=== PATIENT | female | born 1955 | race Caucasian/White ===

== ENCOUNTER → 2020-04-23 | Outpatient (CLI) | payer MEDICARE, OTHER, SELFPAY ==
--- NOTE | 2020-04-23 11:00 | DI.CT.S_ITS ---
PROCEDURE: CT CHEST ABD PEL W CON INDICATIONS: Follow-up node positive colon cancer and melanoma TECHNIQUE: After the administration of oral and intravenous contrast, 5 mm thick sections acquired from the lung apices to the symphysis. 5 mm coronal and sagittal reformats were performed, with additional 7 mm coronal MIP reformats through the lungs. For radiation dose reduction, the following was used: automated exposure control, adjustment of mA and/or kV according to patient size. COMPARISON: Outside Facility, RG, CT PET SKULL BASE TO MID THIGH, 05/16/2019, 11:44. FINDINGS: Image quality: Excellent. CHEST: Lungs and pleura: No acute airspace opacities. No pleural effusions or pneumothorax. Central and peripheral airways appear patent and normal in caliber. Mediastinum: Heart size is normal. No pericardial effusion. No mediastinal or hilar adenopathy by size criteria. Thoracic aorta and central pulmonary arteries are normal in size. Esophagus is normal in caliber. No hiatal hernia. Chest wall: No axillary or supraclavicular adenopathy by size criteria. Thyroid gland is not well seen. ABDOMEN: Solid organs: Liver is normal in size and enhancement. Gallbladder appears normal . Biliary system is non dilated. Pancreas enhances normally. Spleen is normal in size and enhancement. No adrenal nodules. Kidneys demonstrate normal size and enhancement, without hydronephrosis. Peritoneum and bowel: Bowel loops demonstrate normal wall thickness and caliber. No free fluid or air. Nodes and vessels: No retroperitoneal or mesenteric adenopathy by size criteria. Aorta and inferior vena cava are normal in size. Miscellaneous: No ventral hernias. PELVIS: Genitourinary: Bladder wall thickness is normal. Miscellaneous: No inguinal hernias or adenopathy. Bones: No suspicious bony lesions. No vertebral body compression fractures. Enteric staple line is seen at the left lower quadrant posteriorly, likely representing site of prior partial colectomy and reanastomosis. There is no sign of mass lesion in this area or adjacent adenopathy. IMPRESSION: No sign of metastatic disease, apparent reanastomosis site at the posterior sigmoid area of the pelvis. Note is made of a 7 mm hypodensity within the right posterior hepatic segment inferiorly which likely is a cyst or hemangioma but is too small to accurately characterize and therefore follow-up by attention during subsequent survey scanning by CT is recommended. This area was included on prior PET-CT scanning the latest of which is 05/16/19, and no contrast enhanced CT scans are available to compare in this area. Dictated by: Otto Aleman M.D. on 05/04/2020 at 14:42 Approved by: Otto Aleman M.D. on 05/04/2020 at 14:44
== END ==
LOC: CT 09:25
PROVIDERS: PCP Nurse Practitioner Family; Referring Provider Internal Medicine; Visit Provider Internal Medicine
DX: Z08 Encounter for follow-up examination after completed treatment for malignant neoplasm (principal); Z85.820 Personal history of malignant melanoma of skin; Z85.038 Personal history of other malignant neoplasm of large intestine
CPT/HCPCS: 71260; 74177; Q9967

== ENCOUNTER → 2020-04-28 10:33 | Outpatient (CLI) | payer MEDICARE, OTHER, SELFPAY ==
--- NOTE | 2020-04-28 10:34 | DI.MG.S_ITS ---
BILATERAL DIGITAL SCREENING MAMMOGRAM 3D/2D WITH CAD: 04/28/2020 CLINICAL: Baseline by default. Routine screening. No prior exams were available for comparison. The tissue of both breasts is predominantly fatty. Current study was also evaluated with a Computer Aided Detection (CAD) system. There is a possible focal asymmetry in the left breast at 12 o'clock middle depth. No other significant masses, calcifications, or other findings are seen in either breast. IMPRESSION: INCOMPLETE: NEEDS ADDITIONAL IMAGING EVALUATION The possible focal asymmetry in the left breast is indeterminate. Additional views with possible ultrasound are recommended. This exam was interpreted at Station ID: [id number]. NOTE: For mammograms, a report in lay terms will be sent to the patient. Approximately 15% of breast malignancies will not be visualized mammographically. In the management of a palpable breast mass, a negative mammogram must not discourage biopsy of a clinically suspicious lesion. Electronically Signed By: Marcellus hughes/marck:04/30/2020 08:52:03 letter sent: Additional Imaging Needed ACR BI-RADS Category 0: Incomplete [id number]
== END ==
PROVIDERS: PCP Nurse Practitioner Family; Referring Provider Nurse Practitioner Family; Visit Provider Internal Medicine
DX: Z12.31 Encounter for screening mammogram for malignant neoplasm of breast (principal)
CPT/HCPCS: 77063; 77067

== ENCOUNTER → 2020-05-18 09:25 | Outpatient (CLI) | payer MEDICARE, OTHER, SELFPAY ==
--- NOTE | 2020-05-18 | DI.MG.S_ITS ---
UNILATERAL LEFT DIGITAL DIAGNOSTIC MAMMOGRAM 3D/2D WITH ADDITIONAL VIEWS: 05/18/2020 CLINICAL: Additional evaluation requested from prior study. Comparison is made to exam dated: 04/28/2020 mammogram - [facility]. The tissue of left breast is predominantly fatty. There is a possible new irregular focal asymmetry with a circumscribed margin in the left breast at 12 o'clock middle depth. This is seen in additional views. No other significant masses or calcifications are seen in the breast. IMPRESSION: INCOMPLETE: NEEDS ADDITIONAL IMAGING EVALUATION The possible new irregular focal asymmetry in the left breast is indeterminate. An ultrasound is recommended. US will be performed and dictated separately. This exam was interpreted at Station ID: [id number]. NOTE: For mammograms, a report in lay terms will be sent to the patient. Approximately 15% of breast malignancies will not be visualized mammographically. In the management of a palpable breast mass, a negative mammogram must not discourage biopsy of a clinically suspicious lesion. Electronically Signed By: Fabio Deleon acr/:05/18/2020 10:23:31 letter sent: Additional Imaging Needed ACR BI-RADS Category 0: Incomplete 3340F
--- NOTE | 2020-05-18 10:50 | DI.US.S_ITS ---
At the request of: NADIA AZEVEDO Procedure: US breast LT limited ULTRASOUND OF LEFT BREAST: 05/18/2020 CLINICAL: Patient returns today to evaluate a focal asymmetry in the left breast. Comparison is made to exams dated: 05/18/2020 mammogram and 04/28/2020 mammogram - [facility]. Color flow and Doppler ultrasound of the left breast were performed. There is a 0.8 cm x 0.9 cm x 0.7 cm round mass with a circumscribed margin in the left breast at 2 o'clock posterior depth 16 cm from the nipple. This round mass is hypoechoic. There also is a 1.3 cm x 0.8 cm x 0.4 cm irregular mass in the left breast at 1 o'clock posterior depth 9 cm from the nipple. This irregular mass is hypoechoic. IMPRESSION: SUSPICIOUS OF MALIGNANCY The 0.8 cm x 0.9 cm x 0.7 cm round mass in the left breast at 2 o'clock posterior depth is suspicious of malignancy. An ultrasound guided biopsy is recommended. The 1.3 cm x 0.8 cm x 0.4 cm irregular mass in the left breast at 1 o'clock posterior depth is suspicious of malignancy. An ultrasound guided biopsy is recommended. This exam was interpreted at Station ID: [id number]. Electronically Signed By: Fabio Deleon acr/:05/18/2020 13:21:37 letter sent: Biopsy Required Ultrasound BI-RADS: 4 Suspicious for malignancy
== END ==
PROVIDERS: PCP Nurse Practitioner Family; Referring Provider Internal Medicine; Visit Provider Internal Medicine
DX: R92.8 Other abnormal and inconclusive findings on diagnostic imaging of breast (principal); N63.21 Unspecified lump in the left breast, upper outer quadrant
CPT/HCPCS: 76642; 77065; G0279

== ENCOUNTER → 2020-06-01 13:04 | Outpatient (CLI) | payer MEDICARE, OTHER, SELFPAY ==
--- NOTE | 2020-06-01 | DI.MG.S_ITS ---
UNILATERAL LEFT DIGITAL DIAGNOSTIC MAMMOGRAM POST-PROCEDURE IMAGING FOR MARKER PLACEMENT: 06/01/2020 CLINICAL: Left post clip. Comparison is made to exams dated: 06/01/2020 ultrasound biopsy, 05/18/2020 ultrasound, and 05/18/2020 mammogram - [facility]. The tissue of left breast is predominantly fatty. Biopsu sitem markers are in expected positions for biopsy 1 and 2, left breast. IMPRESSION: POST PROCEDURE MAMMOGRAM FOR MARKER PLACEMENT Expected marker positions for the two biopsies performed today, loeft breast. This exam was interpreted at Station ID: [id number]. NOTE: For mammograms, a report in lay terms will be sent to the patient. Approximately 15% of breast malignancies will not be visualized mammographically. In the management of a palpable breast mass, a negative mammogram must not discourage biopsy of a clinically suspicious lesion. Electronically Signed By: Otto Aleman M.D. sdh/:06/01/2020 16:29:37 ACR BI-RADS Category Post-procedure mammogram for marker placement
--- NOTE | 2020-06-01 | DI.US.S_ITS ---
MULTIPLE ULTRASOUND GUIDED BIOPSIES LEFT BREAST USING VACUUM DEVICE WITH MARKING DEVICES INSERTED AND POST DIGITAL MAMMOGRAPHIC AND ULTRASOUND IMAGIN06/01/2020 CLINICAL: Left breast masses x 2. PATIENT CONSENT: Risks (minor bleeding, infection, vasovagal reaction and repeat procedure), benefits and alternatives were explained to the patient and written informed consent was obtained. Correlation is made to exams dated: 05/18/2020 ultrasound, 05/18/2020 mammogram, and 04/28/2020 mammogram - [facility]. An ultrasound guided biopsy using real-time ultrasound was performed for the concerning 0.6 cm x 0.7 cm x 0.6 cm round solid mass located in the left breast at 2 o'clock middle depth. This was described on the previous mammography and ultrasound reports. The skin was prepped in the usual manner. Local anesthetic was administered to the access site. A skin jim was made in the breast. The abnormality was approached from the lateral aspect. A 13 gauge biopsy needle was placed adjacent to the abnormality through an introducer device under ultrasound guidance. Once the needle was documented to be in the correct location, four specimens were obtained using the Mammotome biopsy system. The patient received additional local anesthetic during the procedure. A Vision clip was inserted into the biopsy cavity. A skin closure strip and a sterile dressing were applied to the access site. Post procedure digital mammographic and ultrasound imaging demonstratest the location device at the targeted area and partial removal of the abnormality. The specimens were sent to the laboratory for pathological analysis. A second ultrasound guided biopsy using real-time ultrasound was performed for the concerning 0.2 cm x 0.3 cm x 0.3 cm circumscribed lobulated solid mass located in the left breast at 1 o'clock middle depth. This was described on the previous mammography and ultrasound reports. The skin was prepped in the usual manner. Local anesthetic was administered to the access site. A skin jim was made in the breast. The abnormality was approached from the lateral aspect. A 13 gauge biopsy needle was placed adjacent to the abnormality under ultrasound guidance. Once the needle was documented to be in the correct location, four specimens were obtained using the Mammotome biopsy system. The patient received additional local anesthetic during the procedure. A Celero clip was inserted into the biopsy cavity. A skin closure strip and a sterile dressing were applied to the access site. Post procedure digital mammographic and ultrasound imaging demonstrates the location device at the targeted area and partial removal of the abnormality. The specimens were sent to the laboratory for pathological analysis. IMPRESSION: ULTRASOUND GUIDED BIOPSY BENIGN Ultrasound guided biopsy of the 0.6 cm x 0.7 cm x 0.6 cm solid mass in the left breast at 2 o'clock middle depth was successful. Pathology indicates a benign reactive lymph node (LN). Pathology results are concordant with ultrasound findings. Ultrasound guided biopsy of the 0.2 cm x 0.3 cm x 0.3 cm solid mass in the left breast at 1 o'clock middle depth was successful. Pathology indicates benign benign fibroadipose breast tissue. Pathology results are likely concordant with mammography and ultrasound findings but followup is recommended in 6 months to demonstrate stability.. A follow-up mammogram and an ultrasound in 6 months are recommended to demonstrate stability. This exam was interpreted at Station ID: [id number]. Otto Pollard M.D. [facility],dd/:06/08/2020 13:08:24
--- NOTE | 2020-06-01 | PATH_ITS ---
[facility] Accession Number: [id number] . 01 Material submitted: . PART A: breast - LEFT BREAST MASS 2:00 16CMFN PART B: breast - LEFT BREAST MASS 1:00 9CMFN . 02 Diagnosis: A. Left Breast Mass, 2 o'clock, 16 cm FN, Needle Core Biopsies: Fragments of benign reactive lymph node in a background of fibroadipose tissue. No breast parenchyma identified. No evidence of neoplasm. . B. Left Breast Mass, 1 o'clock, 9 cm FN, Needle Core Biopsies: Fibroadipose tissue. No breast parenchyma identified. No evidence of neoplasm. Numerous deeper levels examined. MRV 06/06/2020 1657 Local . 02 Comment: As part of routine quality assurance associate, part A was reviewed by Dr. Agosto, hematopathologist, who agrees with the diagnosis of reactive lymph node with no evidence of neoplasm. . 02 Electronically signed: . Oliverio Gill MD, PhD, Pathologist NPI- [id number] . 01 Gross description: . A. Received in formalin, labeled #1, are multiple pieces of ruggiero adipose tissue ranging in size from 0.7 x 0.6 x 0.3 cm to 0.3 x 0.3 x 0.1 cm. All pieces are entirely submitted in cassette A1. B. Received in formalin, labeled #2, are seven pieces of ruggiero adipose tissue measuring 1.8 x 0.3 x 0.3 cm to 0.3 x 0.2 x 0.2 cm. All seven pieces are entirely submitted in cassette B1. . Collection date and time for both parts A and B is listed as 06/01/20 for a total fixation time after processing of approximately 80 hours. ([id number]) /FRR 06/05/2020 0226 Local . 02 Pathologist provided ICD-10: N63.20 . 02 CPT . 316299, [id number] Performed at: 01 [facility] [address] [place] [address], [place], [place] [id number] MD Martell Nayak MD Phone: [phone] Performed at: 02 [facility] [address] [place], [place] [id number] MD Sherlyn Blue MD Phone: [phone]
== END ==
PROVIDERS: PCP Nurse Practitioner Family; Referring Provider Internal Medicine; Visit Provider Internal Medicine
DX: N63.21 Unspecified lump in the left breast, upper outer quadrant (principal); C18.9 Malignant neoplasm of colon, unspecified; I89.0 Lymphedema, not elsewhere classified
CPT/HCPCS: 19083; 19084; 77065

== ENCOUNTER → 2020-06-11 10:48 | Outpatient (CLI) | payer MEDICARE, OTHER, SELFPAY ==
[2020-06-11] MEDS: COVID-19 VACC, Ad26(JANSSEN)/PF 0.5 ML IM (11:02)
== END ==
PROVIDERS: PCP Nurse Practitioner Family; Visit Provider Internal Medicine
DX: Z23 Encounter for immunization (principal)
CPT/HCPCS: 0031A; 91303

== ENCOUNTER → 2020-07-17 09:43 | Outpatient (CLI) | payer MEDICARE, OTHER, SELFPAY ==
[2020-07-17 11:23] LABS: Cholesterol 274 mg/dL (140-199); HDL Cholesterol 66 mg/dL (40-60); LDL Cholesterol Calculated 182 mg/dL (<100); Triglycerides 128 mg/dL (35-150)
[2020-07-17 11:44] LABS: Free T4, Direct Thyroxine 0.94 ng/dL (0.78-2.19)
[2020-07-17 11:58] LABS: Thyroid Stimulating Hormone 3.87 uIU/mL (0.47-4.68)
== END ==
PROVIDERS: PCP Nurse Practitioner Family; Referring Provider Nurse Practitioner Family; Visit Provider Nurse Practitioner Family
DX: E78.2 Mixed hyperlipidemia (principal); C18.9 Malignant neoplasm of colon, unspecified
CPT/HCPCS: 36415; 80061; 84439; 84443

== ENCOUNTER 2020-08-06 15:15 | Outpatient (RCR) | payer MEDICARE, OTHER, SELFPAY ==
--- NOTE | 2020-06-05 17:05 | PT.OIE ---
Current Diagnoses Malignant neoplasm of colon, unspecified (06/05/20) Malignant melanoma of skin, unspecified (06/05/20) Lymphedema, not elsewhere classified (06/05/20) Pain in left shoulder (06/05/20) Soft tissue disorder, unspecified (06/05/20) Visit Care Team Role Provider Type ROSITA Crystal Primary Care Provider Advanced Sawmill Worker Specialty: Family Practice Address: [facility] [place], [address] Email: Henri Linda MD Attending Provider Physician Referring Provider Specialty: Oncology Address: [address] [place] [address], [address] Email: Physical Therapy Initial Evaluation PT-OP-A Visit Information Start: 06/04/20 17:38 Freq: Status: Active Protocol: Document 06/05/20 09:47 SAK (Rec: 06/05/20 10:05 SAK [id number]) Out-Patient Physical Therapy Visit Information Visit Information Visit Type Initial Evaluation Visit Start Time 09:47 Visit Stop Time 11:07 Total Visit Minutes 80 Visit Number 1 Evaluation Information Evaluation Date 06/05/20 Precautions Precautions History melanoma, thyroid cancer, Stage 3 colon cancer with lymph nodes removed for that as well. chemo-induced peripheral neuropathy (CIPN) PT-OP-B Current Condition Start: 06/04/20 17:38 Freq: Status: Active Protocol: Document 06/05/20 09:47 SAK (Rec: 06/05/20 10:05 SAK [id number]) Current Condition History of Current Condition Onset Date 5 years melanoma removed posterior left shoulder History of Current Condition states melanoma size of hockey puck out of back, followed by removal of 14 lymph nodes left axilla. States left UE has gradually gotten tighter and heavier over the years and also noticing tightness in lateral trunk. 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 Concerned about hurting her arm. Has 5 year old compression sleeve, has only previously used it with flying and long car rides . Had 2 breast biopsies on left side recently and has 1 more week before gets results. Prior PT for ROM, obtained compression sleeve at that time; no education on lymphedema though reports she has looked online some. Pain is worse at night in arm and across shoulder where the scarring from prior procedures is. Prior Treatments and Tests recent biopsy as above Future Testing and Treatments Planned follow-up with physician Treatment Goals Patient/Caregiver Goals minimize edema, learn therapeutic exercises and self -management to prevent from getting worse and know what to do to manage. Prior Functional Status Baseline Function- ADL's Independent Baseline Function- Mobility Independent Baseline Function- Recreation/Hobbies no restrictions Current Functional Impairments (Reported) Functional Limitations- ADL's painful overhead, behind back, out to side Functional Limitations- Work/School unable to lift more than 10# but needs to be able to lift more; weak and painful Functional Limitations- Recreation/ painful Hobbies PT-OP-C Subjective Start: 06/04/20 17:38 Freq: Status: Active Protocol: Document 06/05/20 09:47 [facility] (Rec: 06/05/20 16:19 [facility] [id number]) OP-PT Subjective Patient Comments Patient Comments left handed Patient Questionnaires Lymphedema Life Impact Score Lymphedema Score 44 OP-PT Pain Assessment Pain Assessment Grid Paper Pain Assessment Grid Completed Yes Location left shoulder Pain Location Details left shoulder, subaxillary region Intensity 5 Description Aching,Burning Pain Aggravating Factors Changing Position,ADL's Other Pain Aggravating Factors reaching Pain Alleviating Factors Inactivity,Rest Home Pain Medication Use Home Pain Medication Frequency medical marijuana at night to sleep Pain Behaviors Pain Behaviors Facial Grimacing,Guarding, Wincing PT-OP-F Manual Assessment Start: 06/04/20 17:38 Freq: Status: Active Protocol: Document 06/05/20 09:47 SAK (Rec: 06/05/20 16:19 [facility] [id number]) Manual Assessments Soft Tissue Assessment Soft Tissue Mobility Assessment decreased mobility of scar thoracic spine (approx 10 horizontal scar T4 level), subaxillary tissue tightness and tenderness PT-OP-J Posture/Palpation/Skin Start: 06/04/20 17:38 Freq: Status: Active Protocol: Document 06/05/20 09:47 SAK (Rec: 06/05/20 16:19 [facility] [id number]) Posture Evaluation Position Sitting Head/C-Spine Posture Forward Head T-Spine Posture Increased Kyphosis L-Spine Posture Decreased Lordosis Shoulder Posture (L) Rounded,(R) Rounded Scapula Posture (L) Protracted Arm Posture (L) Internally Rotated,(R) Internally Rotated Palpation Assessment Location subaxillary Palpation Findings Edema,Soft Tissue Tightness, Tenderness PT-OP-K Range of Motion Start: 06/04/20 17:38 Freq: Status: Active Protocol: Document 06/05/20 09:47 SAK (Rec: 06/05/20 16:19 SAK [id number]) Cervical Spine Range of Motion Cervical Spine Active ROM Limitations Soft Tissue Tightness Comments mod tightness all motions due to muscle tightness Shoulder Goniometric Range of Motion Shoulder Left Shoulder ROM WFL No Testing Position Sitting Flexion 160 Extension 10 Abduction 155 Horizontal Abduction 85 Horizontal Adduction 20 External Rotation at 0 degrees Abduction 75 Internal Rotation Behind Back (text) T12 right Shoulder ROM WFL Yes Testing Position Sitting Internal Rotation Behind Back (text) T4 Shoulder ROM Limitations Shoulder ROM Limitations Soft Tissue Tightness,Muscle Weakness,Pain Elbow/Forearm Range of Motion Elbow/Forearm edwina Elbow/Forearm ROM WFL Yes ROM Testing Position Sitting PT-OP-N Lymphedema Start: 06/04/20 17:38 Freq: Status: Active Protocol: Document 06/05/20 09:47 [facility] (Rec: 06/05/20 16:19 [facility] [id number]) Lymphedema Measurements Upper Extremity Circumference Measurements Left Affected MCP 18.4 cm Dorsum of Hand 19.7 cm Wrist 16.2 cm 5 cm From Wrist Crease 17.7 cm 10 cm From Wrist Crease 21 cm 15 cm From Wrist Crease 24.3 cm 20 cm From Wrist Crease 26.4 cm 25 cm From Wrist Crease 29 cm 30 cm From Wrist Crease 31.4 cm 35 cm From Wrist Crease 33.6 cm 40 cm From Wrist Crease 36.2 cm Axilla 42.3 cm Right Unaffected MCP 18.4 cm Dorsum of Hand 19.4 cm Wrist 17.6 cm 5 cm From Wrist Crease 20.2 cm 10 cm From Wrist Crease 23.4 cm 15 cm From Wrist Crease 25.4 cm 20 cm From Wrist Crease 26.8 cm 25 cm From Wrist Crease 28.8 cm 30 cm From Wrist Crease 31.6 cm 35 cm From Wrist Crease 34 cm 40 cm From Wrist Crease 34.5 cm Axilla 38.9 cm PT-OP-Q Treatments Start: 06/04/20 17:38 Freq: Status: Active Protocol: Document 06/05/20 09:47 [facility] (Rec: 06/05/20 16:19 [facility] [id number]) Lymphedema Treatment Sequential Lymphedema Exercises Location for left UE and trunk Comments see copy in chart Compression Garment Assessment Compression Garment Assessment Details discussed options with PT recommendation for sleeve and compression shirt, chip bag in axilla Patient Education Lymphedema Pathology verbal and using food and beverage analyst Lymphedema Prevention issued written handout and discussed Lymphedema Precautions issued written handout and discussed Compression Garments as above discussed options and purpose Self Manual Lymphatic Drainage initiated Sequential Lymphedema Exercises instructed in HEP Other Other tape test on forearm with kinesiotape PT-OP-T Assessment and Plan Start: 06/04/20 17:38 Freq: Status: Active Protocol: Document 06/05/20 09:47 [facility] (Rec: 06/05/20 16:19 [facility] [id number]) Physical Therapy Assessment Rehab Potential Rehabilitation Potential Good Evaluation Complexity Number of Personal Factors/Comorbidities 3 or More Number of Body Systems Impaired 3 Clinical Presentation at Evaluation Evolving Impairments Impairments Edema,Pain,ROM,Soft Tissue Mobility Goals Five Impairment lymphedema life impact scale 44% Bow Machine Operator Goal (LTG) Improve left shoulder function as evidenced by decrease in lymphedema life impact scare to no greater than 15% LTG Duration 09/03/20 Four Impairment subaxillary soft tissue tightness Penitentiary Goal (LTG) Normalize soft tissue texture and mobility in subaxillary region to decrease pain and facilitate lymphatic flow LTG Duration 09/03/20 Three Impairment decreased left shoulder ROM with inability to reach to bra -line behind back Short Term Goal (STG) Patient to be instructed in HEP for left shoulder ROM STG Duration 07/06/20 Penitentiary Goal (LTG) Patient left shoulder ROM to be WNL with patient able to reach to bra line behind back without pain or difficulty LTG Duration 09/03/20 Two Impairment pain left shoulder limiting function 5/10 on pain scale Short Term Goal (STG) decrease pain to no greater than 3/10 STG Duration 07/06/20 Penitentiary Goal (LTG) decrease left shoulder pain to no greater than 1-2/10 during all usual activities LTG Duration 09/03/20 One Impairment edema left proximal UE, axilla , lateral trunk Assessment Summary Assessment Patient presents with function -limiting lymphedema left proximal UE, subaxillary region and trunk,as well as soft tissue tigtness and pain, decreased left shoulder ROM lifting functional use, and a score on the lymphema life impact scale of. Feel she would benefit from physical therapy to decrease lymphedema , pain, soft tissue and ROM restrictions, and improve her functional use of her left UE. She needs education in all aspects of lymphedema management to include skin care, manual lymphatic drainage, lymphedema bandaging , and lymphedema exercises. She is highly motivated and receptive to instruction. Patient to get results of recent left breast biopsy in 1 week. Physical Therapy Plan Frequency and Duration Frequency of Treatment 20 visits Duration of Treatment 12 weeks Plan of Care Start Date 06/05/20 Plan of Care End Date 09/03/20 Therapeutic Interventions Therapeutic Interventions Home Exercise Program, Lymphedema Management,Manual Therapy,Patient/Caregiver Education,Self-Care/Home Management,Soft Tissue Mobilization,Taping, Therapeutic Activities, Therapeutic Exercises Next Visit Focus/Plan Next Note Type Treatment Note Next Visit Plan Manual lymphatic drainage with instruction of patient for self-massage, further compression problem-solving including evaluation of patient's old compression sleeve, issue chip bag for use in subaxillary region,, review HEP, soft tissue mobilization in subaxillary region, compression bandaging. Possible use of kinesiotape for edema management.
--- NOTE | 2020-06-05 17:05 | PT.OPPOC ---
Physical, Occupational & Speech Therapy At [facility] Current Diagnoses Malignant neoplasm of colon, unspecified (06/05/20) Malignant melanoma of skin, unspecified (06/05/20) Lymphedema, not elsewhere classified (06/05/20) Pain in left shoulder (06/05/20) Soft tissue disorder, unspecified (06/05/20) Visit Care Team Role Provider Type ROSITA Crystal Primary Care Provider Advanced Annealer Helper Specialty: Family Practice Address: [address] [place] [address], [facility] Email: eHnri Linda MD Attending Provider Physician Referring Provider Specialty: Oncology Address: [address] [place] [address], [facility] Email: Plan Of Care PT-OP-T Assessment and Plan Start: 06/04/20 17:38 Freq: Status: Active Protocol: Document 06/05/20 09:47 SAK (Rec: 06/05/20 16:19 SAK [id number]) Physical Therapy Assessment Rehab Potential Rehabilitation Potential Good Evaluation Complexity Number of Personal Factors/Comorbidities 3 or More Number of Body Systems Impaired 3 Clinical Presentation at Evaluation Evolving Impairments Impairments Edema,Pain,ROM,Soft Tissue Mobility Goals Five Impairment lymphedema life impact scale 44% Puppy Sitter Goal (LTG) Improve left shoulder function as evidenced by decrease in lymphedema life impact scare to no greater than 15% LTG Duration 09/03/20 Four Impairment subaxillary soft tissue tightness Care Home Goal (LTG) Normalize soft tissue texture and mobility in subaxillary region to decrease pain and facilitate lymphatic flow LTG Duration 09/03/20 Three Impairment decreased left shoulder ROM with inability to reach to bra -line behind back Short Term Goal (STG) Patient to be instructed in HEP for left shoulder ROM STG Duration 07/06/20 Care Home Goal (LTG) Patient left shoulder ROM to be WNL with patient able to reach to bra line behind back without pain or difficulty LTG Duration 09/03/20 Two Impairment pain left shoulder limiting function 5/10 on pain scale Short Term Goal (STG) decrease pain to no greater than 3/10 STG Duration 07/06/20 Puppy Sitter Goal (LTG) decrease left shoulder pain to no greater than 1-2/10 during all usual activities LTG Duration 09/03/20 One Impairment edema left proximal UE, axilla , lateral trunk Assessment Summary Assessment Patient presents with function -limiting lymphedema left proximal UE, subaxillary region and trunk,as well as soft tissue tigtness and pain, decreased left shoulder ROM lifting functional use, and a score on the lymphema life impact scale of. Feel she would benefit from physical therapy to decrease lymphedema , pain, soft tissue and ROM restrictions, and improve her functional use of her left UE. She needs education in all aspects of lymphedema management to include skin care, manual lymphatic drainage, lymphedema bandaging , and lymphedema exercises. She is highly motivated and receptive to instruction. Patient to get results of recent left breast biopsy in 1 week. Physical Therapy Plan Frequency and Duration Frequency of Treatment 20 visits Duration of Treatment 12 weeks Plan of Care Start Date 06/05/20 Plan of Care End Date 09/03/20 Therapeutic Interventions Therapeutic Interventions Home Exercise Program, Lymphedema Management,Manual Therapy,Patient/Caregiver Education,Self-Care/Home Management,Soft Tissue Mobilization,Taping, Therapeutic Activities, Therapeutic Exercises Next Visit Focus/Plan Next Note Type Treatment Note Next Visit Plan Manual lymphatic drainage with instruction of patient for self-massage, further compression problem-solving including evaluation of patient's old compression sleeve, issue chip bag for use in subaxillary region,, review HEP, soft tissue mobilization in subaxillary region, compression bandaging. Possible use of kinesiotape for edema management. Plan of Care Dates Plan of Care Start Date 06/05/20 Plan of Care End Date 09/03/20 Electronically Signed by: Yajaira Reyes, PT 06/05/20 0639 Please Sign and Return: I have reviewed this Plan of Care and certify that the skilled therapy services above are required to meet the patient?s needs. Physician Signature Date Printed Name and Credentials Clinical Instructor Signature Printed Name and Credentials
--- NOTE | 2020-06-06 14:32 | PT.OTN ---
Current Diagnoses Malignant neoplasm of colon, unspecified (06/06/20) Malignant melanoma of skin, unspecified (06/06/20) Lymphedema, not elsewhere classified (06/06/20) Pain in left shoulder (06/06/20) Soft tissue disorder, unspecified (06/06/20) Physical Therapy Treatment Note PT-OP-A Visit Information Start: 06/04/20 17:38 Freq: Status: Active Protocol: Document 06/06/20 12:55 SAK (Rec: 06/06/20 13:19 SAK [id number]) Out-Patient Physical Therapy Visit Information Visit Information Visit Type Treatment Note Visit Note A little sore, no other c/o. No bad reaction to tape. Visit Start Time 13:00 Visit Stop Time 14:16 Total Visit Minutes 76 Visit Number 2 Evaluation Information Evaluation Date 06/05/20 Precautions Precautions History melanoma, thyroid cancer, Stage 3 colon cancer with lymph nodes removed for that as well. chemo-induced peripheral neuropathy (CIPN) PT-OP-B Current Condition Start: 06/04/20 17:38 Freq: Status: Active Protocol: Document 06/06/20 12:55 SAK (Rec: 06/06/20 13:19 SAK [id number]) Current Condition History of Current Condition Onset Date 5 years melanoma removed posterior left shoulder History of Current Condition states melanoma size of hockey puck out of back, followed by removal of 14 lymph nodes left axilla. States left UE has gradually gotten tighter and heavier over the years and also noticing tightness in lateral trunk. 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 Concerned about hurting her arm. Has 5 year old compression sleeve, has only previously used it with flying and long car rides . Had 2 breast biopsies on left side recently and has 1 more week before gets results. Prior PT for ROM, obtained compression sleeve at that time; no education on lymphedema though reports she has looked online some. Pain is worse at night in arm and across shoulder where the scarring from prior procedures is. Prior Treatments and Tests recent biopsy as above Future Testing and Treatments Planned follow-up with physician PT-OP-C Subjective Start: 06/04/20 17:38 Freq: Status: Active Protocol: Document 06/05/20 09:47 SAK (Rec: 06/05/20 16:19 [facility] [id number]) OP-PT Subjective Patient Comments Patient Comments left handed Patient Questionnaires Lymphedema Life Impact Score Lymphedema Score 44 OP-PT Pain Assessment Pain Assessment Grid Paper Pain Assessment Grid Completed Yes Location left shoulder Pain Location Details left shoulder, subaxillary region Intensity 5 Description Aching,Burning Pain Aggravating Factors Changing Position,ADL's Other Pain Aggravating Factors reaching Pain Alleviating Factors Inactivity,Rest Home Pain Medication Use Home Pain Medication Frequency medical marijuana at night to sleep Pain Behaviors Pain Behaviors Facial Grimacing,Guarding, Wincing PT-OP-F Manual Assessment Start: 06/04/20 17:38 Freq: Status: Active Protocol: Document 06/05/20 09:47 [facility] (Rec: 06/05/20 16:19 [facility] [id number]) Manual Assessments Soft Tissue Assessment Soft Tissue Mobility Assessment decreased mobility of scar thoracic spine (approx 10 horizontal scar T4 level), subaxillary tissue tightness and tenderness PT-OP-J Posture/Palpation/Skin Start: 06/04/20 17:38 Freq: Status: Active Protocol: Document 06/05/20 09:47 [facility] (Rec: 06/05/20 16:19 [facility] [id number]) Posture Evaluation Position Sitting Head/C-Spine Posture Forward Head T-Spine Posture Increased Kyphosis L-Spine Posture Decreased Lordosis Shoulder Posture (L) Rounded,(R) Rounded Scapula Posture (L) Protracted Arm Posture (L) Internally Rotated,(R) Internally Rotated Palpation Assessment Location subaxillary Palpation Findings Edema,Soft Tissue Tightness, Tenderness PT-OP-K Range of Motion Start: 06/04/20 17:38 Freq: Status: Active Protocol: Document 06/05/20 09:47 [facility] (Rec: 06/05/20 16:19 [facility] [id number]) Cervical Spine Range of Motion Cervical Spine Active ROM Limitations Soft Tissue Tightness Comments mod tightness all motions due to muscle tightness Shoulder Goniometric Range of Motion Shoulder Left Shoulder ROM WFL No Testing Position Sitting Flexion 160 Extension 10 Abduction 155 Horizontal Abduction 85 Horizontal Adduction 20 External Rotation at 0 degrees Abduction 75 Internal Rotation Behind Back (text) T12 right Shoulder ROM WFL Yes Testing Position Sitting Internal Rotation Behind Back (text) T4 Shoulder ROM Limitations Shoulder ROM Limitations Soft Tissue Tightness,Muscle Weakness,Pain Elbow/Forearm Range of Motion Elbow/Forearm edwina Elbow/Forearm ROM WFL Yes ROM Testing Position Sitting PT-OP-N Lymphedema Start: 06/04/20 17:38 Freq: Status: Active Protocol: Document 06/05/20 09:47 [facility] (Rec: 06/05/20 16:19 [facility] [id number]) Lymphedema Measurements Upper Extremity Circumference Measurements Left Affected MCP 18.4 cm Dorsum of Hand 19.7 cm Wrist 16.2 cm 5 cm From Wrist Crease 17.7 cm 10 cm From Wrist Crease 21 cm 15 cm From Wrist Crease 24.3 cm 20 cm From Wrist Crease 26.4 cm 25 cm From Wrist Crease 29 cm 30 cm From Wrist Crease 31.4 cm 35 cm From Wrist Crease 33.6 cm 40 cm From Wrist Crease 36.2 cm Axilla 42.3 cm Right Unaffected MCP 18.4 cm Dorsum of Hand 19.4 cm Wrist 17.6 cm 5 cm From Wrist Crease 20.2 cm 10 cm From Wrist Crease 23.4 cm 15 cm From Wrist Crease 25.4 cm 20 cm From Wrist Crease 26.8 cm 25 cm From Wrist Crease 28.8 cm 30 cm From Wrist Crease 31.6 cm 35 cm From Wrist Crease 34 cm 40 cm From Wrist Crease 34.5 cm Axilla 38.9 cm PT-OP-Q Treatments Start: 06/04/20 17:38 Freq: Status: Active Protocol: Document 06/06/20 12:55 [facility] (Rec: 06/06/20 13:19 [facility] [id number]) Therapeutic Exercises Sitting Exercises pulleys Sitting Exercise Name shoulder flexion and abduction Reps/Minutes 5x 10 Manual Therapy Treatment Soft Tissue Mobilization subaxillary Body Location left Mobilization Type Myofascial Release,Other Body Position Supine Comments pin and stretch Taping left UE Treatment Focus edema reduction Type of Tape kinesiotape Skin Inspection intact Comments 2 fan strips 3 squares long ant chest with base at supraclavicular fossa. 1 fan strip subaxillary left across mid thoracic region including scar to subaxillary area right (base at right) Lymphedema Treatment Manual Lymphatic Drainage Location for left UE, subaxillary, and lateral trunk edema Duration 30 Comments MLD distal only to elbow due to lack of edema below elbow. Lymphedema Wrapping Other kinesiotape as above Compression Garment Assessment Compression Garment Assessment Details patient issued 2 chip bags for suabaxillary area under snug shirt and is going to order compression shirt as discussed and possibly balero-type compression in addition to compression sleeve; patient issued arm measurements for ordering compression sleeve online. Patient Education Lymphedema Precautions issued written handout and discussed Self Manual Lymphatic Drainage instructed PT-OP-T Assessment and Plan Start: 06/04/20 17:38 Freq: Status: Active Protocol: Document 06/06/20 12:55 [facility] (Rec: 06/06/20 13:19 [facility] [id number]) Physical Therapy Assessment Goals Five Impairment lymphedema life impact scale 44% Supervisor [employer]ers Goal (LTG) Improve left shoulder function as evidenced by decrease in lymphedema life impact scare to no greater than 15% LTG Duration 09/03/20 Four Impairment subaxillary soft tissue tightness Assisted Goal (LTG) Normalize soft tissue texture and mobility in subaxillary region to decrease pain and facilitate lymphatic flow LTG Duration 09/03/20 Three Impairment decreased left shoulder ROM with inability to reach to bra -line behind back Short Term Goal (STG) Patient to be instructed in HEP for left shoulder ROM STG Duration 07/06/20 Assisted Goal (LTG) Patient left shoulder ROM to be WNL with patient able to reach to bra line behind back without pain or difficulty LTG Duration 09/03/20 Two Impairment pain left shoulder limiting function 5/10 on pain scale Short Term Goal (STG) decrease pain to no greater than 3/10 STG Duration 07/06/20 Supervisor [employer]le House [employer]ers Goal (LTG) decrease left shoulder pain to no greater than 1-2/10 during all usual activities LTG Duration 09/03/20 One Impairment edema left proximal UE, axilla , lateral trunk Assessment Summary Assessment Patient demonstrating good understanding to ther ex, responded well to use of pulleys for shoulder ROM, subaxillary stretch. Trial kinesiotape for proximal edema reduction, patient ordering compression sleeve and shirt, possibly balero-type compression. She is highly compliant and motivated. Physical Therapy Plan Frequency and Duration Frequency of Treatment 20 visits Duration of Treatment 12 weeks Plan of Care Start Date 06/05/20 Plan of Care End Date 09/03/20 Therapeutic Interventions Therapeutic Interventions Home Exercise Program, Lymphedema Management,Manual Therapy,Patient/Caregiver Education,Self-Care/Home Management,Soft Tissue Mobilization,Taping, Therapeutic Activities, Therapeutic Exercises Next Visit Focus/Plan Next Note Type Treatment Note Next Visit Plan continue lymphedema management per POC
--- NOTE | 2020-06-12 16:31 | PT.OTN ---
Current Diagnoses Malignant neoplasm of colon, unspecified (06/12/20) Malignant melanoma of skin, unspecified (06/12/20) Lymphedema, not elsewhere classified (06/12/20) Pain in left shoulder (06/12/20) Soft tissue disorder, unspecified (06/12/20) Physical Therapy Treatment Note PT-OP-A Visit Information Start: 06/04/20 17:38 Freq: Status: Active Protocol: Document 06/12/20 15:21 SAK (Rec: 06/12/20 16:17 SAK [id number]) Out-Patient Physical Therapy Visit Information Visit Information Visit Type Treatment Note Visit Note Biopsy negative for breast cancer, patient very pleased. Tolerated kinesiotape well, Shoulders a little sore because hadn't been doing much exercise. Visit Start Time 15:20 Visit Stop Time 16:15 Total Visit Minutes 55 Visit Number 3 Evaluation Information Evaluation Date 06/05/20 Precautions Precautions History melanoma, thyroid cancer, Stage 3 colon cancer with lymph nodes removed for that as well. chemo-induced peripheral neuropathy (CIPN) PT-OP-B Current Condition Start: 06/04/20 17:38 Freq: Status: Active Protocol: Document 06/12/20 15:21 SAK (Rec: 06/12/20 16:17 SAK [id number]) Current Condition History of Current Condition Onset Date 5 years melanoma removed posterior left shoulder History of Current Condition states melanoma size of hockey puck out of back, followed by removal of 14 lymph nodes left axilla. States left UE has gradually gotten tighter and heavier over the years and also noticing tightness in lateral trunk. 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 Concerned about hurting her arm. Has 5 year old compression sleeve, has only previously used it with flying and long car rides . Had 2 breast biopsies on left side recently and has 1 more week before gets results. Prior PT for ROM, obtained compression sleeve at that time; no education on lymphedema though reports she has looked online some. Pain is worse at night in arm and across shoulder where the scarring from prior procedures is. Prior Treatments and Tests recent biopsy as above Future Testing and Treatments Planned follow-up with physician Treatment Goals Patient/Caregiver Goals minimize edema, learn therapeutic exercises and self -management to prevent from getting worse and know what to do to manage. PT-OP-C Subjective Start: 06/04/20 17:38 Freq: Status: Active Protocol: Document 06/05/20 09:47 [facility] (Rec: 06/05/20 16:19 [facility] [id number]) OP-PT Subjective Patient Comments Patient Comments left handed Patient Questionnaires Lymphedema Life Impact Score Lymphedema Score 44 OP-PT Pain Assessment Pain Assessment Grid Paper Pain Assessment Grid Completed Yes Location left shoulder Pain Location Details left shoulder, subaxillary region Intensity 5 Description Aching,Burning Pain Aggravating Factors Changing Position,ADL's Other Pain Aggravating Factors reaching Pain Alleviating Factors Inactivity,Rest Home Pain Medication Use Home Pain Medication Frequency medical marijuana at night to sleep Pain Behaviors Pain Behaviors Facial Grimacing,Guarding, Wincing PT-OP-F Manual Assessment Start: 06/04/20 17:38 Freq: Status: Active Protocol: Document 06/05/20 09:47 [facility] (Rec: 06/05/20 16:19 [facility] [id number]) Manual Assessments Soft Tissue Assessment Soft Tissue Mobility Assessment decreased mobility of scar thoracic spine (approx 10 horizontal scar T4 level), subaxillary tissue tightness and tenderness PT-OP-J Posture/Palpation/Skin Start: 06/04/20 17:38 Freq: Status: Active Protocol: Document 06/05/20 09:47 [facility] (Rec: 06/05/20 16:19 [facility] [id number]) Posture Evaluation Position Sitting Head/C-Spine Posture Forward Head T-Spine Posture Increased Kyphosis L-Spine Posture Decreased Lordosis Shoulder Posture (L) Rounded,(R) Rounded Scapula Posture (L) Protracted Arm Posture (L) Internally Rotated,(R) Internally Rotated Palpation Assessment Location subaxillary Palpation Findings Edema,Soft Tissue Tightness, Tenderness PT-OP-K Range of Motion Start: 06/04/20 17:38 Freq: Status: Active Protocol: Document 06/05/20 09:47 [facility] (Rec: 06/05/20 16:19 [facility] [id number]) Cervical Spine Range of Motion Cervical Spine Active ROM Limitations Soft Tissue Tightness Comments mod tightness all motions due to muscle tightness Shoulder Goniometric Range of Motion Shoulder Left Shoulder ROM WFL No Testing Position Sitting Flexion 160 Extension 10 Abduction 155 Horizontal Abduction 85 Horizontal Adduction 20 External Rotation at 0 degrees Abduction 75 Internal Rotation Behind Back (text) T12 right Shoulder ROM WFL Yes Testing Position Sitting Internal Rotation Behind Back (text) T4 Shoulder ROM Limitations Shoulder ROM Limitations Soft Tissue Tightness,Muscle Weakness,Pain Elbow/Forearm Range of Motion Elbow/Forearm edwina Elbow/Forearm ROM WFL Yes ROM Testing Position Sitting PT-OP-N Lymphedema Start: 06/04/20 17:38 Freq: Status: Active Protocol: Document 06/12/20 15:21 [facility] (Rec: 06/12/20 16:31 [facility] [id number]) Lymphedema Measurements Upper Extremity Circumference Measurements Left Affected MCP 18.4 cm Dorsum of Hand 19.5 cm Wrist 16.1 cm 5 cm From Wrist Crease 17.9 cm 10 cm From Wrist Crease 21.2 cm 15 cm From Wrist Crease 24 cm 20 cm From Wrist Crease 26.2 cm 25 cm From Wrist Crease 28.9 cm 30 cm From Wrist Crease 31 cm 35 cm From Wrist Crease 32.9 cm 40 cm From Wrist Crease 36 cm Axilla 41.6 cm PT-OP-Q Treatments Start: 06/04/20 17:38 Freq: Status: Active Protocol: Document 06/12/20 15:21 [facility] (Rec: 06/12/20 16:17 [facility] [id number]) Therapeutic Exercises Sidelying Exercises open book Comments start next session shoulder abduction Comments start next session Sitting Exercises pulleys Sitting Exercise Name shoulder flexion and abduction Reps/Minutes 5x 10 Manual Therapy Treatment Soft Tissue Mobilization subaxillary Body Location left Mobilization Type Myofascial Release,Other Body Position Supine Comments pin and stretch; instructed in self massage/pin and stretch Taping left UE Treatment Focus edema reduction Type of Tape kinesiotape Skin Inspection intact Comments 2 fan strips subaxillary left across mid thoracic region including scar to subaxillary area right (base at right) Strips on anterior chest not done due to patient request; were itchy and came off quickly Lymphedema Treatment Manual Lymphatic Drainage Location for left UE, subaxillary, and lateral trunk edema Duration 30 Comments MLD distal only to elbow due to lack of edema below elbow. Lymphedema Wrapping Other kinesiotape as above Compression Garment Assessment Compression Garment Assessment Details Patient obtained compression shirt but it was too large, is going to order smaller. Couldn't find old compression sleeve. PT-OP-T Assessment and Plan Start: 06/04/20 17:38 Freq: Status: Active Protocol: Document 06/12/20 15:21 [facility] (Rec: 06/12/20 16:17 [facility] [id number]) Physical Therapy Assessment Goals Five Impairment lymphedema life impact scale 44% Skilled Nursing Goal (LTG) Improve left shoulder function as evidenced by decrease in lymphedema life impact scare to no greater than 15% LTG Duration 09/03/20 Four Impairment subaxillary soft tissue tightness Java Enterprise [employer] Goal (LTG) Normalize soft tissue texture and mobility in subaxillary region to decrease pain and facilitate lymphatic flow LTG Duration 09/03/20 Three Impairment decreased left shoulder ROM with inability to reach to bra -line behind back Short Term Goal (STG) Patient to be instructed in HEP for left shoulder ROM STG Duration 07/06/20 [employer] Enterprise [employer] Goal (LTG) Patient left shoulder ROM to be WNL with patient able to reach to bra line behind back without pain or difficulty LTG Duration 09/03/20 Two Impairment pain left shoulder limiting function 5/10 on pain scale Short Term Goal (STG) decrease pain to no greater than 3/10 STG Duration 07/06/20 Skilled Nursing Goal (LTG) decrease left shoulder pain to no greater than 1-2/10 during all usual activities LTG Duration 09/03/20 One Impairment edema left proximal UE, axilla , lateral trunk Assessment Summary Assessment Patient relieved with biopsy report. Small decreases in circumference which I feel are related to kinesiotape, MLD, stretching ex. Patient ordering smaller compression shirt then will make use of chip bags or order swell spot. Physical Therapy Plan Frequency and Duration Frequency of Treatment 20 visits Duration of Treatment 12 weeks Plan of Care Start Date 06/05/20 Plan of Care End Date 09/03/20 Therapeutic Interventions Therapeutic Interventions Home Exercise Program, Lymphedema Management,Manual Therapy,Patient/Caregiver Education,Self-Care/Home Management,Soft Tissue Mobilization,Taping, Therapeutic Activities, Therapeutic Exercises Next Visit Focus/Plan Next Note Type Treatment Note Next Visit Plan Explore compression alternatives including compression bras. continue lymphedema management, soft tissue mobilization. per POC
--- NOTE | 2020-06-13 16:25 | PT.OTN ---
Current Diagnoses Malignant neoplasm of colon, unspecified (06/13/20) Malignant melanoma of skin, unspecified (06/13/20) Lymphedema, not elsewhere classified (06/13/20) Pain in left shoulder (06/13/20) Soft tissue disorder, unspecified (06/13/20) Physical Therapy Treatment Note PT-OP-A Visit Information Start: 06/04/20 17:38 Freq: Status: Active Protocol: Document 06/13/20 14:37 SAK (Rec: 06/13/20 14:49 SAK [id number]) Out-Patient Physical Therapy Visit Information Visit Information Visit Type Treatment Note Visit Note Emotional due to loan issues, difficulty, some subaxillary pain after manual techniques. Compression sleeve and shirt didn't come yet, should tomorrow. Visit Start Time 14:32 Visit Stop Time 15:40 Total Visit Minutes 68 Visit Number 4 Precautions Precautions History melanoma, thyroid cancer, Stage 3 colon cancer with lymph nodes removed for that as well. chemo-induced peripheral neuropathy (CIPN) PT-OP-B Current Condition Start: 06/04/20 17:38 Freq: Status: Active Protocol: Document 06/12/20 15:21 SAK (Rec: 06/12/20 16:17 SAK [id number]) Current Condition History of Current Condition Onset Date 5 years melanoma removed posterior left shoulder History of Current Condition states melanoma size of hockey puck out of back, followed by removal of 14 lymph nodes left axilla. States left UE has gradually gotten tighter and heavier over the years and also noticing tightness in lateral trunk. 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 Concerned about hurting her arm. Has 5 year old compression sleeve, has only previously used it with flying and long car rides . Had 2 breast biopsies on left side recently and has 1 more week before gets results. Prior PT for ROM, obtained compression sleeve at that time; no education on lymphedema though reports she has looked online some. Pain is worse at night in arm and across shoulder where the scarring from prior procedures is. Prior Treatments and Tests recent biopsy as above Future Testing and Treatments Planned follow-up with physician Treatment Goals Patient/Caregiver Goals minimize edema, learn therapeutic exercises and self -management to prevent from getting worse and know what to do to manage. PT-OP-C Subjective Start: 06/04/20 17:38 Freq: Status: Active Protocol: Document 06/13/20 14:37 SAK (Rec: 06/13/20 16:07 SAK [id number]) OP-PT Subjective Patient Comments Patient Comments as above. Patient stressed about living situation, considering moving to [place] where she has support network of people, place to stay, etc. Still having pain reaching overhead and behind back. PT-OP-F Manual Assessment Start: 06/04/20 17:38 Freq: Status: Active Protocol: Document 06/05/20 09:47 SAK (Rec: 06/05/20 16:19 SAK [id number]) Manual Assessments Soft Tissue Assessment Soft Tissue Mobility Assessment decreased mobility of scar thoracic spine (approx 10 horizontal scar T4 level), subaxillary tissue tightness and tenderness PT-OP-J Posture/Palpation/Skin Start: 06/04/20 17:38 Freq: Status: Active Protocol: Document 06/05/20 09:47 SAK (Rec: 06/05/20 16:19 SAK [id number]) Posture Evaluation Position Sitting Head/C-Spine Posture Forward Head T-Spine Posture Increased Kyphosis L-Spine Posture Decreased Lordosis Shoulder Posture (L) Rounded,(R) Rounded Scapula Posture (L) Protracted Arm Posture (L) Internally Rotated,(R) Internally Rotated Palpation Assessment Location subaxillary Palpation Findings Edema,Soft Tissue Tightness, Tenderness PT-OP-K Range of Motion Start: 06/04/20 17:38 Freq: Status: Active Protocol: Document 06/05/20 09:47 SAK (Rec: 06/05/20 16:19 SAK [id number]) Cervical Spine Range of Motion Cervical Spine Active ROM Limitations Soft Tissue Tightness Comments mod tightness all motions due to muscle tightness Shoulder Goniometric Range of Motion Shoulder Left Shoulder ROM WFL No Testing Position Sitting Flexion 160 Extension 10 Abduction 155 Horizontal Abduction 85 Horizontal Adduction 20 External Rotation at 0 degrees Abduction 75 Internal Rotation Behind Back (text) T12 right Shoulder ROM WFL Yes Testing Position Sitting Internal Rotation Behind Back (text) T4 Shoulder ROM Limitations Shoulder ROM Limitations Soft Tissue Tightness,Muscle Weakness,Pain Elbow/Forearm Range of Motion Elbow/Forearm edwina Elbow/Forearm ROM WFL Yes ROM Testing Position Sitting PT-OP-N Lymphedema Start: 06/04/20 17:38 Freq: Status: Active Protocol: Document 06/12/20 15:21 [facility] (Rec: 06/12/20 16:31 [facility] [id number]) Lymphedema Measurements Upper Extremity Circumference Measurements Left Affected MCP 18.4 cm Dorsum of Hand 19.5 cm Wrist 16.1 cm 5 cm From Wrist Crease 17.9 cm 10 cm From Wrist Crease 21.2 cm 15 cm From Wrist Crease 24 cm 20 cm From Wrist Crease 26.2 cm 25 cm From Wrist Crease 28.9 cm 30 cm From Wrist Crease 31 cm 35 cm From Wrist Crease 32.9 cm 40 cm From Wrist Crease 36 cm Axilla 41.6 cm PT-OP-Q Treatments Start: 06/04/20 17:38 Freq: Status: Active Protocol: Document 06/13/20 14:37 [facility] (Rec: 06/13/20 16:07 SAK [id number]) Therapeutic Exercises Sidelying Exercises shoulder abduction Side left Reps/Minutes 6 Comments with manual scapular facilitation Sitting Exercises pulleys Sitting Exercise Name shoulder flexion and abduction Reps/Minutes 10x 5 Manual Therapy Treatment Soft Tissue Mobilization subaxillary Body Location left Mobilization Type Myofascial Release,Other Body Position Supine Comments pin and stretch Taping left UE Treatment Focus tissue mobility Type of Tape kinesiotape Skin Inspection intact Comments subaxillary fan strips left intact I strip armpit over scarred area for skin lift and improved mobility 50% stretch Manual Techniques PROM left shoulder Body Position Supine Reps/Duration 5 min Self-Care/Home Management Treatment Education Patient Education Home Exercise Program Other Education shoulder ER, row, shoulder extension with L1 TB; issued theraband and exercise handout Lymphedema Treatment Lymphedema Wrapping Other Patient to obtain compression sleeve and shirt tomorrow, requested no bandaging Compression Garment Assessment Compression Garment Assessment Details as above Patient Education Lymphedema Precautions discussed Compression Garments discuss compression bras next session PT-OP-T Assessment and Plan Start: 06/04/20 17:38 Freq: Status: Active Protocol: Document 06/13/20 14:37 SAK (Rec: 06/13/20 14:49 SAK [id number]) Physical Therapy Assessment Goals Five Impairment lymphedema life impact scale 44% Group Home Goal (LTG) Improve left shoulder function as evidenced by decrease in lymphedema life impact scare to no greater than 15% LTG Duration 09/03/20 Four Impairment subaxillary soft tissue tightness Home Sales Service Professional Goal (LTG) Normalize soft tissue texture and mobility in subaxillary region to decrease pain and facilitate lymphatic flow LTG Duration 09/03/20 Three Impairment decreased left shoulder ROM with inability to reach to bra -line behind back Short Term Goal (STG) Patient to be instructed in HEP for left shoulder ROM STG Duration 07/06/20 Home Sales Service Professional Goal (LTG) Patient left shoulder ROM to be WNL with patient able to reach to bra line behind back without pain or difficulty LTG Duration 09/03/20 Two Impairment pain left shoulder limiting function 5/10 on pain scale Short Term Goal (STG) decrease pain to no greater than 3/10 STG Duration 07/06/20 Group Home Goal (LTG) decrease left shoulder pain to no greater than 1-2/10 during all usual activities LTG Duration 09/03/20 One Impairment edema left proximal UE, axilla , lateral trunk Assessment Summary Assessment Patient to receive compression sleeve and shirt tomorrow so not bandaged per her request today. Kinesiotape trial armpit over scar region for skin lift and improved soft tissue mobility. Instructed in shoulder ext, ER, and row with theraband for shoulder stabilization and strengthening. Improved shoulder abduction sidelying with manual scapular mobilization. Physical Therapy Plan Frequency and Duration Frequency of Treatment 20 visits Duration of Treatment 12 weeks Plan of Care Start Date 06/05/20 Plan of Care End Date 09/03/20 Therapeutic Interventions Therapeutic Interventions Home Exercise Program, Lymphedema Management,Manual Therapy,Patient/Caregiver Education,Self-Care/Home Management,Soft Tissue Mobilization,Taping, Therapeutic Activities, Therapeutic Exercises Next Visit Focus/Plan Next Note Type Treatment Note Next Visit Plan Evaluate compression garments, discuss compression bra/ sports bra option for holding chip bag/swell spot/Jony pad in subaxillary region. Progress ROM and strengthening left shoulder and continue lyphedema management left UE.
--- NOTE | 2020-06-19 14:37 | PT.OTN ---
Current Diagnoses Malignant neoplasm of colon, unspecified (06/19/20) Malignant melanoma of skin, unspecified (06/19/20) Lymphedema, not elsewhere classified (06/19/20) Pain in left shoulder (06/19/20) Soft tissue disorder, unspecified (06/19/20) Physical Therapy Treatment Note PT-OP-A Visit Information Start: 06/04/20 17:38 Freq: Status: Active Protocol: Document 06/19/20 09:45 SAK (Rec: 06/19/20 10:04 SAK [id number]) Out-Patient Physical Therapy Visit Information Visit Information Visit Type Treatment Note Visit Start Time 14:32 Visit Stop Time 15:40 Total Visit Minutes 68 Visit Number 4 PT-OP-B Current Condition Start: 06/04/20 17:38 Freq: Status: Active Protocol: Document 06/12/20 15:21 SAK (Rec: 06/12/20 16:17 SAK [id number]) Current Condition History of Current Condition Onset Date 5 years melanoma removed posterior left shoulder History of Current Condition states melanoma size of hockey puck out of back, followed by removal of 14 lymph nodes left axilla. States left UE has gradually gotten tighter and heavier over the years and also noticing tightness in lateral trunk. 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 Concerned about hurting her arm. Has 5 year old compression sleeve, has only previously used it with flying and long car rides . Had 2 breast biopsies on left side recently and has 1 more week before gets results. Prior PT for ROM, obtained compression sleeve at that time; no education on lymphedema though reports she has looked online some. Pain is worse at night in arm and across shoulder where the scarring from prior procedures is. Prior Treatments and Tests recent biopsy as above Future Testing and Treatments Planned follow-up with physician Treatment Goals Patient/Caregiver Goals minimize edema, learn therapeutic exercises and self -management to prevent from getting worse and know what to do to manage. PT-OP-C Subjective Start: 06/04/20 17:38 Freq: Status: Active Protocol: Document 06/19/20 09:45 SAK (Rec: 06/19/20 10:04 SAK [id number]) OP-PT Subjective Patient Comments Patient Comments Got compression sleeve, wore past few days. Reports her am feels a little better. Waiting to receive compression shirt. Emotionally doing better, going to move to [place], has support. PT-OP-F Manual Assessment Start: 06/04/20 17:38 Freq: Status: Active Protocol: Document 06/05/20 09:47 [facility] (Rec: 06/05/20 16:19 SAK [id number]) Manual Assessments Soft Tissue Assessment Soft Tissue Mobility Assessment decreased mobility of scar thoracic spine (approx 10 horizontal scar T4 level), subaxillary tissue tightness and tenderness PT-OP-J Posture/Palpation/Skin Start: 06/04/20 17:38 Freq: Status: Active Protocol: Document 06/05/20 09:47 [facility] (Rec: 06/05/20 16:19 [facility] [id number]) Posture Evaluation Position Sitting Head/C-Spine Posture Forward Head T-Spine Posture Increased Kyphosis L-Spine Posture Decreased Lordosis Shoulder Posture (L) Rounded,(R) Rounded Scapula Posture (L) Protracted Arm Posture (L) Internally Rotated,(R) Internally Rotated Palpation Assessment Location subaxillary Palpation Findings Edema,Soft Tissue Tightness, Tenderness PT-OP-K Range of Motion Start: 06/04/20 17:38 Freq: Status: Active Protocol: Document 06/05/20 09:47 [facility] (Rec: 06/05/20 16:19 [facility] [id number]) Cervical Spine Range of Motion Cervical Spine Active ROM Limitations Soft Tissue Tightness Comments mod tightness all motions due to muscle tightness Shoulder Goniometric Range of Motion Shoulder Left Shoulder ROM WFL No Testing Position Sitting Flexion 160 Extension 10 Abduction 155 Horizontal Abduction 85 Horizontal Adduction 20 External Rotation at 0 degrees Abduction 75 Internal Rotation Behind Back (text) T12 right Shoulder ROM WFL Yes Testing Position Sitting Internal Rotation Behind Back (text) T4 Shoulder ROM Limitations Shoulder ROM Limitations Soft Tissue Tightness,Muscle Weakness,Pain Elbow/Forearm Range of Motion Elbow/Forearm edwina Elbow/Forearm ROM WFL Yes ROM Testing Position Sitting PT-OP-N Lymphedema Start: 06/04/20 17:38 Freq: Status: Active Protocol: Document 06/12/20 15:21 SAK (Rec: 06/12/20 16:31 SAK [id number]) Lymphedema Measurements Upper Extremity Circumference Measurements Left Affected MCP 18.4 cm Dorsum of Hand 19.5 cm Wrist 16.1 cm 5 cm From Wrist Crease 17.9 cm 10 cm From Wrist Crease 21.2 cm 15 cm From Wrist Crease 24 cm 20 cm From Wrist Crease 26.2 cm 25 cm From Wrist Crease 28.9 cm 30 cm From Wrist Crease 31 cm 35 cm From Wrist Crease 32.9 cm 40 cm From Wrist Crease 36 cm Axilla 41.6 cm PT-OP-Q Treatments Start: 06/04/20 17:38 Freq: Status: Active Protocol: Document 06/19/20 09:45 [facility] (Rec: 06/19/20 10:04 [facility] [id number]) Therapeutic Exercises Sidelying Exercises open book Reps/Minutes 5x Comments verbal and manual facilitation for segmental movement Manual Therapy Treatment Soft Tissue Mobilization subaxillary Body Location left Mobilization Type Myofascial Release,Other Body Position Supine Comments pin and stretch Taping left UE Treatment Focus tissue mobility Type of Tape kinesiotape Skin Inspection intact Comments subaxillary fan strips left intact I strip armpit over scarred area for skin lift and improved mobility 50% stretch Other Other Manual Treatments circumferential measurements Lymphedema Treatment Lymphedema Wrapping Other No wrapping or kinesiotape due to discomfort in skin, should get compression shirt. Compression Garment Assessment Compression Garment Assessment Details Good fit of new compression sleeve, though instructed not to pull up quite as high as it was rolling down. Get silicone at top of next sleeve . Patient Education Compression Garments discussed as option if compression shirt not adequate or helpful PT-OP-T Assessment and Plan Start: 06/04/20 17:38 Freq: Status: Active Protocol: Document 06/19/20 09:45 [facility] (Rec: 06/19/20 10:04 [facility] [id number]) Physical Therapy Assessment Goals Five Impairment lymphedema life impact scale 44% Residential Goal (LTG) Improve left shoulder function as evidenced by decrease in lymphedema life impact scare to no greater than 15% LTG Duration 09/03/20 Four Impairment subaxillary soft tissue tightness Community Service Organization Director Goal (LTG) Normalize soft tissue texture and mobility in subaxillary region to decrease pain and facilitate lymphatic flow LTG Duration 09/03/20 Three Impairment decreased left shoulder ROM with inability to reach to bra -line behind back Short Term Goal (STG) Patient to be instructed in HEP for left shoulder ROM STG Duration 07/06/20 Residential Goal (LTG) Patient left shoulder ROM to be WNL with patient able to reach to bra line behind back without pain or difficulty LTG Duration 09/03/20 Two Impairment pain left shoulder limiting function 5/10 on pain scale Short Term Goal (STG) decrease pain to no greater than 3/10 STG Duration 07/06/20 Residential Goal (LTG) decrease left shoulder pain to no greater than 1-2/10 during all usual activities LTG Duration 09/03/20 One Impairment edema left proximal UE, axilla , lateral trunk Assessment Summary Assessment Good fit of compression sleeve , no compression shirt yet. Did not tolerate kinesiotape in axilla well, so no taping today. Measurements decreased some in upper arm, increased in hand; discussed possible need for gauntlet or elasticized flove. Physical Therapy Plan Frequency and Duration Frequency of Treatment 20 visits Duration of Treatment 12 weeks Plan of Care Start Date 06/05/20 Plan of Care End Date 09/03/20 Therapeutic Interventions Therapeutic Interventions Home Exercise Program, Lymphedema Management,Manual Therapy,Patient/Caregiver Education,Self-Care/Home Management,Soft Tissue Mobilization,Taping, Therapeutic Activities, Therapeutic Exercises Next Visit Focus/Plan Next Note Type Treatment Note Next Visit Plan Evaluate compression shirt if obtained, progress ROM, strengthening, continue lymphedema management, soft tissue mobility.
--- NOTE | 2020-06-19 14:39 | PT.OTN ---
Current Diagnoses Malignant neoplasm of colon, unspecified (06/19/20) Malignant melanoma of skin, unspecified (06/19/20) Lymphedema, not elsewhere classified (06/19/20) Pain in left shoulder (06/19/20) Soft tissue disorder, unspecified (06/19/20) Physical Therapy Treatment Note PT-OP-A Visit Information Start: 06/04/20 17:38 Freq: Status: Active Protocol: Document 06/19/20 09:45 SAK (Rec: 06/19/20 10:04 SAK [id number]) Out-Patient Physical Therapy Visit Information Visit Information Visit Type Treatment Note Visit Start Time 14:32 Visit Stop Time 15:40 Total Visit Minutes 68 Visit Number 4 PT-OP-B Current Condition Start: 06/04/20 17:38 Freq: Status: Active Protocol: Document 06/12/20 15:21 SAK (Rec: 06/12/20 16:17 SAK [id number]) Current Condition History of Current Condition Onset Date 5 years melanoma removed posterior left shoulder History of Current Condition states melanoma size of hockey puck out of back, followed by removal of 14 lymph nodes left axilla. States left UE has gradually gotten tighter and heavier over the years and also noticing tightness in lateral trunk. 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 Concerned about hurting her arm. Has 5 year old compression sleeve, has only previously used it with flying and long car rides . Had 2 breast biopsies on left side recently and has 1 more week before gets results. Prior PT for ROM, obtained compression sleeve at that time; no education on lymphedema though reports she has looked online some. Pain is worse at night in arm and across shoulder where the scarring from prior procedures is. Prior Treatments and Tests recent biopsy as above Future Testing and Treatments Planned follow-up with physician Treatment Goals Patient/Caregiver Goals minimize edema, learn therapeutic exercises and self -management to prevent from getting worse and know what to do to manage. PT-OP-C Subjective Start: 06/04/20 17:38 Freq: Status: Active Protocol: Document 06/19/20 09:45 SAK (Rec: 06/19/20 10:04 SAK [id number]) OP-PT Subjective Patient Comments Patient Comments Got compression sleeve, wore past few days. Reports her am feels a little better. Waiting to receive compression shirt. Emotionally doing better, going to move to [place], has support. PT-OP-F Manual Assessment Start: 06/04/20 17:38 Freq: Status: Active Protocol: Document 06/05/20 09:47 SAK (Rec: 06/05/20 16:19 SAK [id number]) Manual Assessments Soft Tissue Assessment Soft Tissue Mobility Assessment decreased mobility of scar thoracic spine (approx 10 horizontal scar T4 level), subaxillary tissue tightness and tenderness PT-OP-J Posture/Palpation/Skin Start: 06/04/20 17:38 Freq: Status: Active Protocol: Document 06/05/20 09:47 SAK (Rec: 06/05/20 16:19 SAK [id number]) Posture Evaluation Position Sitting Head/C-Spine Posture Forward Head T-Spine Posture Increased Kyphosis L-Spine Posture Decreased Lordosis Shoulder Posture (L) Rounded,(R) Rounded Scapula Posture (L) Protracted Arm Posture (L) Internally Rotated,(R) Internally Rotated Palpation Assessment Location subaxillary Palpation Findings Edema,Soft Tissue Tightness, Tenderness PT-OP-K Range of Motion Start: 06/04/20 17:38 Freq: Status: Active Protocol: Document 06/05/20 09:47 [facility] (Rec: 06/05/20 16:19 [facility] [id number]) Cervical Spine Range of Motion Cervical Spine Active ROM Limitations Soft Tissue Tightness Comments mod tightness all motions due to muscle tightness Shoulder Goniometric Range of Motion Shoulder Left Shoulder ROM WFL No Testing Position Sitting Flexion 160 Extension 10 Abduction 155 Horizontal Abduction 85 Horizontal Adduction 20 External Rotation at 0 degrees Abduction 75 Internal Rotation Behind Back (text) T12 right Shoulder ROM WFL Yes Testing Position Sitting Internal Rotation Behind Back (text) T4 Shoulder ROM Limitations Shoulder ROM Limitations Soft Tissue Tightness,Muscle Weakness,Pain Elbow/Forearm Range of Motion Elbow/Forearm edwina Elbow/Forearm ROM WFL Yes ROM Testing Position Sitting PT-OP-N Lymphedema Start: 06/04/20 17:38 Freq: Status: Active Protocol: Document 06/19/20 09:45 SAK (Rec: 06/19/20 14:39 SAK [id number]) Lymphedema Measurements Upper Extremity Circumference Measurements Left Affected MCP 19.1 cm Dorsum of Hand 20.4 cm Wrist 16.8 cm 5 cm From Wrist Crease 17.7 cm 10 cm From Wrist Crease 21 cm 15 cm From Wrist Crease 24 cm 20 cm From Wrist Crease 25.6 cm 25 cm From Wrist Crease 28 cm 30 cm From Wrist Crease 30.8 cm 35 cm From Wrist Crease 33.3 cm 40 cm From Wrist Crease 35.2 cm Axilla 41 cm PT-OP-Q Treatments Start: 06/04/20 17:38 Freq: Status: Active Protocol: Document 06/19/20 09:45 [facility] (Rec: 06/19/20 10:04 [facility] [id number]) Therapeutic Exercises Sidelying Exercises open book Reps/Minutes 5x Comments verbal and manual facilitation for segmental movement Manual Therapy Treatment Soft Tissue Mobilization subaxillary Body Location left Mobilization Type Myofascial Release,Other Body Position Supine Comments pin and stretch Taping left UE Treatment Focus tissue mobility Type of Tape kinesiotape Skin Inspection intact Comments subaxillary fan strips left intact I strip armpit over scarred area for skin lift and improved mobility 50% stretch Other Other Manual Treatments circumferential measurements Lymphedema Treatment Lymphedema Wrapping Other No wrapping or kinesiotape due to discomfort in skin, should get compression shirt. Compression Garment Assessment Compression Garment Assessment Details Good fit of new compression sleeve, though instructed not to pull up quite as high as it was rolling down. Get silicone at top of next sleeve . Patient Education Compression Garments discussed as option if compression shirt not adequate or helpful PT-OP-T Assessment and Plan Start: 06/04/20 17:38 Freq: Status: Active Protocol: Document 06/19/20 09:45 [facility] (Rec: 06/19/20 10:04 [facility] [id number]) Physical Therapy Assessment Goals Five Impairment lymphedema life impact scale 44% Bus Girl Goal (LTG) Improve left shoulder function as evidenced by decrease in lymphedema life impact scare to no greater than 15% LTG Duration 09/03/20 Four Impairment subaxillary soft tissue tightness Long-Term Goal (LTG) Normalize soft tissue texture and mobility in subaxillary region to decrease pain and facilitate lymphatic flow LTG Duration 09/03/20 Three Impairment decreased left shoulder ROM with inability to reach to bra -line behind back Short Term Goal (STG) Patient to be instructed in HEP for left shoulder ROM STG Duration 07/06/20 Long-Term Goal (LTG) Patient left shoulder ROM to be WNL with patient able to reach to bra line behind back without pain or difficulty LTG Duration 09/03/20 Two Impairment pain left shoulder limiting function 5/10 on pain scale Short Term Goal (STG) decrease pain to no greater than 3/10 STG Duration 07/06/20 Long-Term Goal (LTG) decrease left shoulder pain to no greater than 1-2/10 during all usual activities LTG Duration 09/03/20 One Impairment edema left proximal UE, axilla , lateral trunk Assessment Summary Assessment Good fit of compression sleeve , no compression shirt yet. Did not tolerate kinesiotape in axilla well, so no taping today. Measurements decreased some in upper arm, increased in hand; discussed possible need for gauntlet or elasticized flove. Physical Therapy Plan Frequency and Duration Frequency of Treatment 20 visits Duration of Treatment 12 weeks Plan of Care Start Date 06/05/20 Plan of Care End Date 09/03/20 Therapeutic Interventions Therapeutic Interventions Home Exercise Program, Lymphedema Management,Manual Therapy,Patient/Caregiver Education,Self-Care/Home Management,Soft Tissue Mobilization,Taping, Therapeutic Activities, Therapeutic Exercises Next Visit Focus/Plan Next Note Type Treatment Note Next Visit Plan Evaluate compression shirt if obtained, progress ROM, strengthening, continue lymphedema management, soft tissue mobility.
--- NOTE | 2020-06-21 13:15 | PT.OTN ---
Current Diagnoses Malignant neoplasm of colon, unspecified (06/21/20) Malignant melanoma of skin, unspecified (06/21/20) Lymphedema, not elsewhere classified (06/21/20) Pain in left shoulder (06/21/20) Soft tissue disorder, unspecified (06/21/20) Physical Therapy Treatment Note PT-OP-A Visit Information Start: 06/04/20 17:38 Freq: Status: Active Protocol: Document 06/21/20 09:50 SAK (Rec: 06/21/20 10:11 SAK [id number]) Out-Patient Physical Therapy Visit Information Visit Information Visit Type Treatment Note Visit Start Time 09:47 Visit Stop Time 10:30 Total Visit Minutes 43 Visit Number 4 Precautions Precautions History melanoma, thyroid cancer, Stage 3 colon cancer with lymph nodes removed for that as well. chemo-induced peripheral neuropathy (CIPN) PT-OP-B Current Condition Start: 06/04/20 17:38 Freq: Status: Active Protocol: Document 06/12/20 15:21 SAK (Rec: 06/12/20 16:17 SAK [id number]) Current Condition History of Current Condition Onset Date 5 years melanoma removed posterior left shoulder History of Current Condition states melanoma size of hockey puck out of back, followed by removal of 14 lymph nodes left axilla. States left UE has gradually gotten tighter and heavier over the years and also noticing tightness in lateral trunk. 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 Concerned about hurting her arm. Has 5 year old compression sleeve, has only previously used it with flying and long car rides . Had 2 breast biopsies on left side recently and has 1 more week before gets results. Prior PT for ROM, obtained compression sleeve at that time; no education on lymphedema though reports she has looked online some. Pain is worse at night in arm and across shoulder where the scarring from prior procedures is. Prior Treatments and Tests recent biopsy as above Future Testing and Treatments Planned follow-up with physician Treatment Goals Patient/Caregiver Goals minimize edema, learn therapeutic exercises and self -management to prevent from getting worse and know what to do to manage. PT-OP-C Subjective Start: 06/04/20 17:38 Freq: Status: Active Protocol: Document 06/21/20 09:50 SAK (Rec: 06/21/20 10:11 [facility] [id number]) OP-PT Subjective Patient Comments Patient Comments Nothing new, wearing sleeves. Compression shirt not delivered yet. Feeling less swollen. Decreased pain and fullness. PT-OP-F Manual Assessment Start: 06/04/20 17:38 Freq: Status: Active Protocol: Document 06/05/20 09:47 [facility] (Rec: 06/05/20 16:19 [facility] [id number]) Manual Assessments Soft Tissue Assessment Soft Tissue Mobility Assessment decreased mobility of scar thoracic spine (approx 10 horizontal scar T4 level), subaxillary tissue tightness and tenderness PT-OP-J Posture/Palpation/Skin Start: 06/04/20 17:38 Freq: Status: Active Protocol: Document 06/05/20 09:47 [facility] (Rec: 06/05/20 16:19 [facility] [id number]) Posture Evaluation Position Sitting Head/C-Spine Posture Forward Head T-Spine Posture Increased Kyphosis L-Spine Posture Decreased Lordosis Shoulder Posture (L) Rounded,(R) Rounded Scapula Posture (L) Protracted Arm Posture (L) Internally Rotated,(R) Internally Rotated Palpation Assessment Location subaxillary Palpation Findings Edema,Soft Tissue Tightness, Tenderness PT-OP-K Range of Motion Start: 06/04/20 17:38 Freq: Status: Active Protocol: Document 06/05/20 09:47 [facility] (Rec: 06/05/20 16:19 [facility] [id number]) Cervical Spine Range of Motion Cervical Spine Active ROM Limitations Soft Tissue Tightness Comments mod tightness all motions due to muscle tightness Shoulder Goniometric Range of Motion Shoulder Left Shoulder ROM WFL No Testing Position Sitting Flexion 160 Extension 10 Abduction 155 Horizontal Abduction 85 Horizontal Adduction 20 External Rotation at 0 degrees Abduction 75 Internal Rotation Behind Back (text) T12 right Shoulder ROM WFL Yes Testing Position Sitting Internal Rotation Behind Back (text) T4 Shoulder ROM Limitations Shoulder ROM Limitations Soft Tissue Tightness,Muscle Weakness,Pain Elbow/Forearm Range of Motion Elbow/Forearm edwina Elbow/Forearm ROM WFL Yes ROM Testing Position Sitting PT-OP-N Lymphedema Start: 06/04/20 17:38 Freq: Status: Active Protocol: Document 06/19/20 09:45 [facility] (Rec: 06/19/20 14:39 [facility] [id number]) Lymphedema Measurements Upper Extremity Circumference Measurements Left Affected MCP 19.1 cm Dorsum of Hand 20.4 cm Wrist 16.8 cm 5 cm From Wrist Crease 17.7 cm 10 cm From Wrist Crease 21 cm 15 cm From Wrist Crease 24 cm 20 cm From Wrist Crease 25.6 cm 25 cm From Wrist Crease 28 cm 30 cm From Wrist Crease 30.8 cm 35 cm From Wrist Crease 33.3 cm 40 cm From Wrist Crease 35.2 cm Axilla 41 cm PT-OP-Q Treatments Start: 06/04/20 17:38 Freq: Status: Active Protocol: Document 06/21/20 09:50 SAK (Rec: 06/21/20 10:11 [facility] [id number]) Therapeutic Exercises Sidelying Exercises open book Reps/Minutes 5x Comments verbal and manual facilitation for segmental movement Sitting Exercises pec stretch Equipment Used ball at back Reps/Minutes 2x30 shoulder abduct Equipment Used 1# Reps/Minutes 10x shoulder flex Equipment Used 1# Reps/Minutes 10x pulleys Sitting Exercise Name shoulder flexion and abduction Reps/Minutes 10x 5 Manual Therapy Treatment Other Other Manual Treatments circumferential measurements not done today PT-OP-T Assessment and Plan Start: 06/04/20 17:38 Freq: Status: Active Protocol: Document 06/21/20 09:50 SAK (Rec: 06/21/20 10:11 [facility] [id number]) Physical Therapy Assessment Goals Five Impairment lymphedema life impact scale 44% [place]oker Goal (LTG) Improve left shoulder function as evidenced by decrease in lymphedema life impact scare to no greater than 15% LTG Duration 09/03/20 Four Impairment subaxillary soft tissue tightness [facility] Goal (LTG) Normalize soft tissue texture and mobility in subaxillary region to decrease pain and facilitate lymphatic flow LTG Duration 09/03/20 Three Impairment decreased left shoulder ROM with inability to reach to bra -line behind back Short Term Goal (STG) Patient to be instructed in HEP for left shoulder ROM STG Duration 07/06/20 [place] Stoker Goal (LTG) Patient left shoulder ROM to be WNL with patient able to reach to bra line behind back without pain or difficulty LTG Duration 09/03/20 Two Impairment pain left shoulder limiting function 5/10 on pain scale Short Term Goal (STG) decrease pain to no greater than 3/10 STG Duration 07/06/20 [place]oker Goal (LTG) decrease left shoulder pain to no greater than 1-2/10 during all usual activities LTG Duration 09/03/20 One Impairment edema left proximal UE, axilla , lateral trunk Short Term Goal (STG) Decrease lymphedema to stable level (no increase or decrease greater than 1 cm over the course of 1 week) STG Duration 07/06/20 [facility] Goal (LTG) Patient to be indepndent with all aspects of lymphedema self care and obtain appropriate compression LTG Duration 09/03/20 Progress Towards Goals Progress Towards Goals Progressing Toward Goals Assessment Summary Assessment Good goal progress all goal areas, patient reporting less pain and feeling of fullness. Compression sleeve fits well, ROM continues to improve. Physical Therapy Plan Frequency and Duration Frequency of Treatment 20 visits Duration of Treatment 12 weeks Plan of Care Start Date 06/05/20 Plan of Care End Date 09/03/20 Therapeutic Interventions Therapeutic Interventions Home Exercise Program, Lymphedema Management,Manual Therapy,Patient/Caregiver Education,Self-Care/Home Management,Soft Tissue Mobilization,Taping, Therapeutic Activities, Therapeutic Exercises Next Visit Focus/Plan Next Note Type Treatment Note Next Visit Plan Evaluate compression shirt if obtained, progress ROM, strengthening, continue lymphedema management, soft tissue mobility.
--- NOTE | 2020-06-26 14:42 | PT.OTN ---
Current Diagnoses Malignant neoplasm of colon, unspecified (06/26/20) Malignant melanoma of skin, unspecified (06/26/20) Lymphedema, not elsewhere classified (06/26/20) Pain in left shoulder (06/26/20) Soft tissue disorder, unspecified (06/26/20) Physical Therapy Treatment Note PT-OP-A Visit Information Start: 06/04/20 17:38 Freq: Status: Active Protocol: Document 06/26/20 09:46 SAK (Rec: 06/26/20 10:06 SAK [id number]) Out-Patient Physical Therapy Visit Information Visit Information Visit Type Treatment Note Visit Start Time 09:47 Visit Stop Time 10:35 Total Visit Minutes 48 Visit Number 6 Precautions Precautions History melanoma, thyroid cancer, Stage 3 colon cancer with lymph nodes removed for that as well. chemo-induced peripheral neuropathy (CIPN) PT-OP-B Current Condition Start: 06/04/20 17:38 Freq: Status: Active Protocol: Document 06/12/20 15:21 SAK (Rec: 06/12/20 16:17 SAK [id number]) Current Condition History of Current Condition Onset Date 5 years melanoma removed posterior left shoulder History of Current Condition states melanoma size of hockey puck out of back, followed by removal of 14 lymph nodes left axilla. States left UE has gradually gotten tighter and heavier over the years and also noticing tightness in lateral trunk. 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 Concerned about hurting her arm. Has 5 year old compression sleeve, has only previously used it with flying and long car rides . Had 2 breast biopsies on left side recently and has 1 more week before gets results. Prior PT for ROM, obtained compression sleeve at that time; no education on lymphedema though reports she has looked online some. Pain is worse at night in arm and across shoulder where the scarring from prior procedures is. Prior Treatments and Tests recent biopsy as above Future Testing and Treatments Planned follow-up with physician Treatment Goals Patient/Caregiver Goals minimize edema, learn therapeutic exercises and self -management to prevent from getting worse and know what to do to manage. PT-OP-C Subjective Start: 06/04/20 17:38 Freq: Status: Active Protocol: Document 06/26/20 09:46 SAK (Rec: 06/26/20 10:06 SAK [id number]) OP-PT Subjective Patient Comments Patient Comments Tried sports bra with chip bag for prolonged car ride instead of putting pillow under her arm, felt helpful, less pain. PT-OP-F Manual Assessment Start: 06/04/20 17:38 Freq: Status: Active Protocol: Document 06/05/20 09:47 SAK (Rec: 06/05/20 16:19 SAK [id number]) Manual Assessments Soft Tissue Assessment Soft Tissue Mobility Assessment decreased mobility of scar thoracic spine (approx 10 horizontal scar T4 level), subaxillary tissue tightness and tenderness PT-OP-J Posture/Palpation/Skin Start: 06/04/20 17:38 Freq: Status: Active Protocol: Document 06/05/20 09:47 [facility] (Rec: 06/05/20 16:19 [facility] [id number]) Posture Evaluation Position Sitting Head/C-Spine Posture Forward Head T-Spine Posture Increased Kyphosis L-Spine Posture Decreased Lordosis Shoulder Posture (L) Rounded,(R) Rounded Scapula Posture (L) Protracted Arm Posture (L) Internally Rotated,(R) Internally Rotated Palpation Assessment Location subaxillary Palpation Findings Edema,Soft Tissue Tightness, Tenderness PT-OP-K Range of Motion Start: 06/04/20 17:38 Freq: Status: Active Protocol: Document 06/05/20 09:47 [facility] (Rec: 06/05/20 16:19 [facility] [id number]) Cervical Spine Range of Motion Cervical Spine Active ROM Limitations Soft Tissue Tightness Comments mod tightness all motions due to muscle tightness Shoulder Goniometric Range of Motion Shoulder Left Shoulder ROM WFL No Testing Position Sitting Flexion 160 Extension 10 Abduction 155 Horizontal Abduction 85 Horizontal Adduction 20 External Rotation at 0 degrees Abduction 75 Internal Rotation Behind Back (text) T12 right Shoulder ROM WFL Yes Testing Position Sitting Internal Rotation Behind Back (text) T4 Shoulder ROM Limitations Shoulder ROM Limitations Soft Tissue Tightness,Muscle Weakness,Pain Elbow/Forearm Range of Motion Elbow/Forearm edwina Elbow/Forearm ROM WFL Yes ROM Testing Position Sitting PT-OP-N Lymphedema Start: 06/04/20 17:38 Freq: Status: Active Protocol: Document 06/26/20 09:46 [facility] (Rec: 06/26/20 14:42 SAK [id number]) Lymphedema Measurements Upper Extremity Circumference Measurements Left Affected MCP 18.7 cm Dorsum of Hand 19.8 cm Wrist 16.4 cm 5 cm From Wrist Crease 17.9 cm 10 cm From Wrist Crease 20.8 cm 15 cm From Wrist Crease 23.8 cm 20 cm From Wrist Crease 25.8 cm 25 cm From Wrist Crease 28.3 cm 30 cm From Wrist Crease 31.2 cm 35 cm From Wrist Crease 33.5 cm 40 cm From Wrist Crease 34.9 cm Axilla 41.2 cm PT-OP-Q Treatments Start: 06/04/20 17:38 Freq: Status: Active Protocol: Document 06/26/20 09:46 [facility] (Rec: 06/26/20 14:42 [facility] [id number]) Lymphedema Treatment Manual Lymphatic Drainage Location for left UE, subaxillary, and lateral trunk edema Duration 30 Comments MLD distal only to elbow due to lack of edema below elbow. Lymphedema Wrapping Other not needed due to compression sleeve. Shown swell spot for more durable commercial product to replace homemade chip bags Compression Garment Assessment Compression Garment Assessment Details Has not received new compression shirt yet. Continues to wear sleeve. Other Other MFR and pin and stretch subaxillary scar tissue and soft tissue tightness PT-OP-T Assessment and Plan Start: 06/04/20 17:38 Freq: Status: Active Protocol: Document 06/26/20 09:46 [facility] (Rec: 06/26/20 10:06 [facility] [id number]) Physical Therapy Assessment Goals Five Impairment lymphedema life impact scale 44% Half-Way Goal (LTG) Improve left shoulder function as evidenced by decrease in lymphedema life impact scare to no greater than 15% LTG Duration 09/03/20 Four Impairment subaxillary soft tissue tightness Half-Way Goal (LTG) Normalize soft tissue texture and mobility in subaxillary region to decrease pain and facilitate lymphatic flow LTG Duration 09/03/20 Three Impairment decreased left shoulder ROM with inability to reach to bra -line behind back Short Term Goal (STG) Patient to be instructed in HEP for left shoulder ROM STG Duration 07/06/20 Half-Way Goal (LTG) Patient left shoulder ROM to be WNL with patient able to reach to bra line behind back without pain or difficulty LTG Duration 09/03/20 Two Impairment pain left shoulder limiting function 5/10 on pain scale Short Term Goal (STG) decrease pain to no greater than 3/10 STG Duration 07/06/20 Half-Way Goal (LTG) decrease left shoulder pain to no greater than 1-2/10 during all usual activities LTG Duration 09/03/20 One Impairment edema left proximal UE, axilla , lateral trunk Short Term Goal (STG) Decrease lymphedema to stable level (no increase or decrease greater than 1 cm over the course of 1 week) STG Duration 07/06/20 Contract Technician Goal (LTG) Patient to be indepndent with all aspects of lymphedema self care and obtain appropriate compression LTG Duration 09/03/20 Progress Towards Goals Progress Towards Goals Progressing Toward Goals Assessment Summary Assessment circumferential measurements with mild inc and decrease today. Patient found ship bag helpful, was shown swell spot for more durable compression in axilla and lateral trunk. Shoulder ROM continues to improve. Needs further emphasis on soft tissue mobilization in subaxillary region. Physical Therapy Plan Frequency and Duration Frequency of Treatment 20 visits Duration of Treatment 12 weeks Plan of Care Start Date 06/05/20 Plan of Care End Date 09/03/20 Therapeutic Interventions Therapeutic Interventions Home Exercise Program, Lymphedema Management,Manual Therapy,Patient/Caregiver Education,Self-Care/Home Management,Soft Tissue Mobilization,Taping, Therapeutic Activities, Therapeutic Exercises Next Visit Focus/Plan Next Note Type Treatment Note Next Visit Plan Continue lymphedema management with increased emphasis on soft tissue mobilization in subaxillary region; patient less tender with improved tolerance for work there today .
--- NOTE | 2020-06-28 16:34 | PT.OTN ---
Current Diagnoses Malignant neoplasm of colon, unspecified (06/28/20) Malignant melanoma of skin, unspecified (06/28/20) Lymphedema, not elsewhere classified (06/28/20) Pain in left shoulder (06/28/20) Soft tissue disorder, unspecified (06/28/20) Physical Therapy Treatment Note PT-OP-A Visit Information Start: 06/04/20 17:38 Freq: Status: Active Protocol: Document 06/28/20 09:42 SAK (Rec: 06/28/20 09:57 SAK [id number]) Out-Patient Physical Therapy Visit Information Visit Information Visit Type Treatment Note Visit Start Time 09:45 Visit Stop Time 10:29 Total Visit Minutes 44 Visit Number 7 Precautions Precautions History melanoma, thyroid cancer, Stage 3 colon cancer with lymph nodes removed for that as well. chemo-induced peripheral neuropathy (CIPN) PT-OP-B Current Condition Start: 06/04/20 17:38 Freq: Status: Active Protocol: Document 06/12/20 15:21 SAK (Rec: 06/12/20 16:17 SAK [id number]) Current Condition History of Current Condition Onset Date 5 years melanoma removed posterior left shoulder History of Current Condition states melanoma size of hockey puck out of back, followed by removal of 14 lymph nodes left axilla. States left UE has gradually gotten tighter and heavier over the years and also noticing tightness in lateral trunk. 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 Concerned about hurting her arm. Has 5 year old compression sleeve, has only previously used it with flying and long car rides . Had 2 breast biopsies on left side recently and has 1 more week before gets results. Prior PT for ROM, obtained compression sleeve at that time; no education on lymphedema though reports she has looked online some. Pain is worse at night in arm and across shoulder where the scarring from prior procedures is. Prior Treatments and Tests recent biopsy as above Future Testing and Treatments Planned follow-up with physician Treatment Goals Patient/Caregiver Goals minimize edema, learn therapeutic exercises and self -management to prevent from getting worse and know what to do to manage. PT-OP-C Subjective Start: 06/04/20 17:38 Freq: Status: Active Protocol: Document 06/28/20 09:42 SAK (Rec: 06/28/20 09:57 [facility] [id number]) OP-PT Subjective Patient Comments Patient Comments 5 year anniversary of cancer free, emotional. Improving ROM, still tightness under armpit. Carried water on farm yesterday, felt some pain; too much weight so stopped. Compression shirt not tight enough, plans to just continue with sports bra, chip bag, and compression sleeve at this time unless has increase in swelling. Patient Reported Progress Improving PT-OP-F Manual Assessment Start: 06/04/20 17:38 Freq: Status: Active Protocol: Document 06/05/20 09:47 [facility] (Rec: 06/05/20 16:19 [facility] [id number]) Manual Assessments Soft Tissue Assessment Soft Tissue Mobility Assessment decreased mobility of scar thoracic spine (approx 10 horizontal scar T4 level), subaxillary tissue tightness and tenderness PT-OP-J Posture/Palpation/Skin Start: 06/04/20 17:38 Freq: Status: Active Protocol: Document 06/05/20 09:47 [facility] (Rec: 06/05/20 16:19 [facility] [id number]) Posture Evaluation Position Sitting Head/C-Spine Posture Forward Head T-Spine Posture Increased Kyphosis L-Spine Posture Decreased Lordosis Shoulder Posture (L) Rounded,(R) Rounded Scapula Posture (L) Protracted Arm Posture (L) Internally Rotated,(R) Internally Rotated Palpation Assessment Location subaxillary Palpation Findings Edema,Soft Tissue Tightness, Tenderness PT-OP-K Range of Motion Start: 06/04/20 17:38 Freq: Status: Active Protocol: Document 06/05/20 09:47 [facility] (Rec: 06/05/20 16:19 [facility] [id number]) Cervical Spine Range of Motion Cervical Spine Active ROM Limitations Soft Tissue Tightness Comments mod tightness all motions due to muscle tightness Shoulder Goniometric Range of Motion Shoulder Left Shoulder ROM WFL No Testing Position Sitting Flexion 160 Extension 10 Abduction 155 Horizontal Abduction 85 Horizontal Adduction 20 External Rotation at 0 degrees Abduction 75 Internal Rotation Behind Back (text) T12 right Shoulder ROM WFL Yes Testing Position Sitting Internal Rotation Behind Back (text) T4 Shoulder ROM Limitations Shoulder ROM Limitations Soft Tissue Tightness,Muscle Weakness,Pain Elbow/Forearm Range of Motion Elbow/Forearm edwina Elbow/Forearm ROM WFL Yes ROM Testing Position Sitting PT-OP-N Lymphedema Start: 06/04/20 17:38 Freq: Status: Active Protocol: Document 06/26/20 09:46 SAK (Rec: 06/26/20 14:42 [facility] [id number]) Lymphedema Measurements Upper Extremity Circumference Measurements Left Affected MCP 18.7 cm Dorsum of Hand 19.8 cm Wrist 16.4 cm 5 cm From Wrist Crease 17.9 cm 10 cm From Wrist Crease 20.8 cm 15 cm From Wrist Crease 23.8 cm 20 cm From Wrist Crease 25.8 cm 25 cm From Wrist Crease 28.3 cm 30 cm From Wrist Crease 31.2 cm 35 cm From Wrist Crease 33.5 cm 40 cm From Wrist Crease 34.9 cm Axilla 41.2 cm PT-OP-Q Treatments Start: 06/04/20 17:38 Freq: Status: Active Protocol: Document 06/28/20 09:42 [facility] (Rec: 06/28/20 09:57 [facility] [id number]) Therapeutic Exercises Sitting Exercises pulleys Sitting Exercise Name shoulder flexion and abduction Reps/Minutes 10x 5 Manual Therapy Treatment Soft Tissue Mobilization subaxillary Body Location left Mobilization Type Myofascial Release,Other Body Position Supine Comments pin and stretch Lymphedema Treatment Manual Lymphatic Drainage Location for left UE, subaxillary, and lateral trunk edema Duration 30 Comments MLD distal only to elbow due to lack of edema below elbow. Compression Garment Assessment Compression Garment Assessment Details as above Other Other MFR and pin and stretch subaxillary scar tissue and soft tissue tightness, use of Dycem and instruction of patient in how to use for self -massage; she demonstrated good understanding and was issued hand-sized square of Dycem for home use, self massage PT-OP-T Assessment and Plan Start: 06/04/20 17:38 Freq: Status: Active Protocol: Document 06/28/20 09:42 [facility] (Rec: 06/28/20 09:57 [facility] [id number]) Physical Therapy Assessment Goals Five Impairment lymphedema life impact scale 44% Jail Goal (LTG) Improve left shoulder function as evidenced by decrease in lymphedema life impact scare to no greater than 15% LTG Duration 09/03/20 Four Impairment subaxillary soft tissue tightness Jail Goal (LTG) Normalize soft tissue texture and mobility in subaxillary region to decrease pain and facilitate lymphatic flow LTG Duration 09/03/20 Three Impairment decreased left shoulder ROM with inability to reach to bra -line behind back Short Term Goal (STG) Patient to be instructed in HEP for left shoulder ROM STG Duration 07/06/20 Slate Roofer Helper Goal (LTG) Patient left shoulder ROM to be WNL with patient able to reach to bra line behind back without pain or difficulty LTG Duration 09/03/20 Two Impairment pain left shoulder limiting function 5/10 on pain scale Short Term Goal (STG) decrease pain to no greater than 3/10 STG Duration 07/06/20 Jail Goal (LTG) decrease left shoulder pain to no greater than 1-2/10 during all usual activities LTG Duration 09/03/20 One Impairment edema left proximal UE, axilla , lateral trunk Short Term Goal (STG) Decrease lymphedema to stable level (no increase or decrease greater than 1 cm over the course of 1 week) STG Duration 07/06/20 Jail Goal (LTG) Patient to be indepndent with all aspects of lymphedema self care and obtain appropriate compression LTG Duration 09/03/20 Progress Towards Goals Progress Towards Goals Progressing Toward Goals Assessment Summary Assessment Improving tolerance for soft tissue mobilization in subaxillary area with good benefit from use of Dycem; patient plans to use for self- massage at home. ROM left shoulder WNL after treatment today. Physical Therapy Plan Frequency and Duration Frequency of Treatment 20 visits Duration of Treatment 12 weeks Plan of Care Start Date 06/05/20 Plan of Care End Date 09/03/20 Therapeutic Interventions Therapeutic Interventions Home Exercise Program, Lymphedema Management,Manual Therapy,Patient/Caregiver Education,Self-Care/Home Management,Soft Tissue Mobilization,Taping, Therapeutic Activities, Therapeutic Exercises Next Visit Focus/Plan Next Note Type Treatment Note Next Visit Plan circumferential measurements, continue MLD and soft tissue mobilization. Review open book exercise.
--- NOTE | 2020-07-03 11:59 | PT.OTN ---
Current Diagnoses Malignant neoplasm of colon, unspecified (07/03/20) Malignant melanoma of skin, unspecified (07/03/20) Lymphedema, not elsewhere classified (07/03/20) Pain in left shoulder (07/03/20) Soft tissue disorder, unspecified (07/03/20) Physical Therapy Treatment Note PT-OP-A Visit Information Start: 06/04/20 17:38 Freq: Status: Active Protocol: Document 07/03/20 09:56 SAK (Rec: 07/03/20 10:09 [facility]AK [id number]) Out-Patient Physical Therapy Visit Information Visit Information Visit Type Treatment Note Visit Start Time 09:50 Visit Stop Time 10:35 Total Visit Minutes 45 Visit Number 8 Precautions Precautions History melanoma, thyroid cancer, Stage 3 colon cancer with lymph nodes removed for that as well. chemo-induced peripheral neuropathy (CIPN) PT-OP-B Current Condition Start: 06/04/20 17:38 Freq: Status: Active Protocol: Document 06/12/20 15:21 SAK (Rec: 06/12/20 16:17 SAK [id number]) Current Condition History of Current Condition Onset Date 5 years melanoma removed posterior left shoulder History of Current Condition states melanoma size of hockey puck out of back, followed by removal of 14 lymph nodes left axilla. States left UE has gradually gotten tighter and heavier over the years and also noticing tightness in lateral trunk. 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 Concerned about hurting her arm. Has 5 year old compression sleeve, has only previously used it with flying and long car rides . Had 2 breast biopsies on left side recently and has 1 more week before gets results. Prior PT for ROM, obtained compression sleeve at that time; no education on lymphedema though reports she has looked online some. Pain is worse at night in arm and across shoulder where the scarring from prior procedures is. Prior Treatments and Tests recent biopsy as above Future Testing and Treatments Planned follow-up with physician Treatment Goals Patient/Caregiver Goals minimize edema, learn therapeutic exercises and self -management to prevent from getting worse and know what to do to manage. PT-OP-C Subjective Start: 06/04/20 17:38 Freq: Status: Active Protocol: Document 07/03/20 09:56 SAK (Rec: 07/03/20 10:09 [facility] [id number]) OP-PT Subjective Patient Comments Patient Comments Overall doing ok, arm felt heavy but didn't get sleeve on yet today and didn't wear yesterday. Son gone, she has been doing more around farm with him gone plus getting ready to move; more activity with her arm. Hasn't done self-massage to scar due to having stomache bug for a few days. PT-OP-F Manual Assessment Start: 06/04/20 17:38 Freq: Status: Active Protocol: Document 06/05/20 09:47 [facility] (Rec: 06/05/20 16:19 [facility] [id number]) Manual Assessments Soft Tissue Assessment Soft Tissue Mobility Assessment decreased mobility of scar thoracic spine (approx 10 horizontal scar T4 level), subaxillary tissue tightness and tenderness PT-OP-J Posture/Palpation/Skin Start: 06/04/20 17:38 Freq: Status: Active Protocol: Document 06/05/20 09:47 [facility] (Rec: 06/05/20 16:19 [facility] [id number]) Posture Evaluation Position Sitting Head/C-Spine Posture Forward Head T-Spine Posture Increased Kyphosis L-Spine Posture Decreased Lordosis Shoulder Posture (L) Rounded,(R) Rounded Scapula Posture (L) Protracted Arm Posture (L) Internally Rotated,(R) Internally Rotated Palpation Assessment Location subaxillary Palpation Findings Edema,Soft Tissue Tightness, Tenderness PT-OP-K Range of Motion Start: 06/04/20 17:38 Freq: Status: Active Protocol: Document 06/05/20 09:47 [facility] (Rec: 06/05/20 16:19 [facility] [id number]) Cervical Spine Range of Motion Cervical Spine Active ROM Limitations Soft Tissue Tightness Comments mod tightness all motions due to muscle tightness Shoulder Goniometric Range of Motion Shoulder Left Shoulder ROM WFL No Testing Position Sitting Flexion 160 Extension 10 Abduction 155 Horizontal Abduction 85 Horizontal Adduction 20 External Rotation at 0 degrees Abduction 75 Internal Rotation Behind Back (text) T12 right Shoulder ROM WFL Yes Testing Position Sitting Internal Rotation Behind Back (text) T4 Shoulder ROM Limitations Shoulder ROM Limitations Soft Tissue Tightness,Muscle Weakness,Pain Elbow/Forearm Range of Motion Elbow/Forearm edwina Elbow/Forearm ROM WFL Yes ROM Testing Position Sitting PT-OP-N Lymphedema Start: 06/04/20 17:38 Freq: Status: Active Protocol: Document 06/26/20 09:46 [facility] (Rec: 06/26/20 14:42 [facility] [id number]) Lymphedema Measurements Upper Extremity Circumference Measurements Left Affected MCP 18.7 cm Dorsum of Hand 19.8 cm Wrist 16.4 cm 5 cm From Wrist Crease 17.9 cm 10 cm From Wrist Crease 20.8 cm 15 cm From Wrist Crease 23.8 cm 20 cm From Wrist Crease 25.8 cm 25 cm From Wrist Crease 28.3 cm 30 cm From Wrist Crease 31.2 cm 35 cm From Wrist Crease 33.5 cm 40 cm From Wrist Crease 34.9 cm Axilla 41.2 cm PT-OP-Q Treatments Start: 06/04/20 17:38 Freq: Status: Active Protocol: Document 07/03/20 09:56 [facility] (Rec: 07/03/20 10:09 [facility] [id number]) Therapeutic Exercises Sidelying Exercises open book Reps/Minutes 5x Comments verbal and manual facilitation for segmental movement, cued deep breathing shoulder abduction Side bilateral Reps/Minutes 5 Comments with manual scapular facilitation, end-range stretch Manual Therapy Treatment Soft Tissue Mobilization subaxillary Body Location left Mobilization Type Myofascial Release,Other Body Position Supine Comments pin and stretch Lymphedema Treatment Manual Lymphatic Drainage Location for left UE, subaxillary, and lateral trunk edema Duration 30 Comments MLD distal only to elbow due to lack of edema below elbow. PT-OP-T Assessment and Plan Start: 06/04/20 17:38 Freq: Status: Active Protocol: Document 07/03/20 09:56 [facility] (Rec: 07/03/20 10:09 [facility] [id number]) Physical Therapy Assessment Goals Five Impairment lymphedema life impact scale 44% Electronics Test Engineer Goal (LTG) Improve left shoulder function as evidenced by decrease in lymphedema life impact scare to no greater than 15% LTG Duration 09/03/20 Four Impairment subaxillary soft tissue tightness Electronics Test Engineer Goal (LTG) Normalize soft tissue texture and mobility in subaxillary region to decrease pain and facilitate lymphatic flow LTG Duration 09/03/20 Three Impairment decreased left shoulder ROM with inability to reach to bra -line behind back Short Term Goal (STG) Patient to be instructed in HEP for left shoulder ROM STG Duration 07/06/20 Retirement Goal (LTG) Patient left shoulder ROM to be WNL with patient able to reach to bra line behind back without pain or difficulty LTG Duration 09/03/20 Two Impairment pain left shoulder limiting function 5/10 on pain scale Short Term Goal (STG) decrease pain to no greater than 3/10 STG Duration 07/06/20 Retirement Goal (LTG) decrease left shoulder pain to no greater than 1-2/10 during all usual activities LTG Duration 09/03/20 One Impairment edema left proximal UE, axilla , lateral trunk Short Term Goal (STG) Decrease lymphedema to stable level (no increase or decrease greater than 1 cm over the course of 1 week) STG Duration 07/06/20 Retirement Goal (LTG) Patient to be indepndent with all aspects of lymphedema self care and obtain appropriate compression LTG Duration 09/03/20 Assessment Summary Assessment Increased circumferential measurements after increased activity, not wearing sleeve; stressed importance of wearing sleeve especially with physical activity, exercises, and doing lat and subaxilary stretch as reviewe today. Physical Therapy Plan Frequency and Duration Frequency of Treatment 20 visits Duration of Treatment 12 weeks Plan of Care Start Date 06/05/20 Plan of Care End Date 09/03/20 Therapeutic Interventions Therapeutic Interventions Home Exercise Program, Lymphedema Management,Manual Therapy,Patient/Caregiver Education,Self-Care/Home Management,Soft Tissue Mobilization,Taping, Therapeutic Activities, Therapeutic Exercises Next Visit Focus/Plan Next Note Type Treatment Note Next Visit Plan Emphasis on subaxillary stretching, pin and stretch. Circumferential measurements.
--- NOTE | 2020-07-05 17:39 | PT.OTN ---
Current Diagnoses Malignant neoplasm of colon, unspecified (07/05/20) Malignant melanoma of skin, unspecified (07/05/20) Lymphedema, not elsewhere classified (07/05/20) Pain in left shoulder (07/05/20) Soft tissue disorder, unspecified (07/05/20) Physical Therapy Treatment Note PT-OP-A Visit Information Start: 06/04/20 17:38 Freq: Status: Active Protocol: Document 07/05/20 17:30 SAK (Rec: 07/05/20 17:39 SAK [id number]) Out-Patient Physical Therapy Visit Information Visit Information Visit Type Treatment Note Visit Start Time 09:50 Visit Stop Time 10:32 Total Visit Minutes 42 Visit Number 9 Precautions Precautions History melanoma, thyroid cancer, Stage 3 colon cancer with lymph nodes removed for that as well. chemo-induced peripheral neuropathy (CIPN) PT-OP-B Current Condition Start: 06/04/20 17:38 Freq: Status: Active Protocol: Document 06/12/20 15:21 SAK (Rec: 06/12/20 16:17 SAK [id number]) Current Condition History of Current Condition Onset Date 5 years melanoma removed posterior left shoulder History of Current Condition states melanoma size of hockey puck out of back, followed by removal of 14 lymph nodes left axilla. States left UE has gradually gotten tighter and heavier over the years and also noticing tightness in lateral trunk. 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 Concerned about hurting her arm. Has 5 year old compression sleeve, has only previously used it with flying and long car rides . Had 2 breast biopsies on left side recently and has 1 more week before gets results. Prior PT for ROM, obtained compression sleeve at that time; no education on lymphedema though reports she has looked online some. Pain is worse at night in arm and across shoulder where the scarring from prior procedures is. Prior Treatments and Tests recent biopsy as above Future Testing and Treatments Planned follow-up with physician Treatment Goals Patient/Caregiver Goals minimize edema, learn therapeutic exercises and self -management to prevent from getting worse and know what to do to manage. PT-OP-C Subjective Start: 06/04/20 17:38 Freq: Status: Active Protocol: Document 07/05/20 17:30 SAK (Rec: 07/05/20 17:39 [facility] [id number]) OP-PT Subjective Patient Comments Patient Comments Less heaviness today, wore sleeve during day since last seen and tried not to do as heavy of activity at farm. Ordered a second compression sleeve with cap over shoulder and strap for increased coverage. PT-OP-F Manual Assessment Start: 06/04/20 17:38 Freq: Status: Active Protocol: Document 06/05/20 09:47 [facility] (Rec: 06/05/20 16:19 [facility] [id number]) Manual Assessments Soft Tissue Assessment Soft Tissue Mobility Assessment decreased mobility of scar thoracic spine (approx 10 horizontal scar T4 level), subaxillary tissue tightness and tenderness PT-OP-J Posture/Palpation/Skin Start: 06/04/20 17:38 Freq: Status: Active Protocol: Document 06/05/20 09:47 [facility] (Rec: 06/05/20 16:19 [facility] [id number]) Posture Evaluation Position Sitting Head/C-Spine Posture Forward Head T-Spine Posture Increased Kyphosis L-Spine Posture Decreased Lordosis Shoulder Posture (L) Rounded,(R) Rounded Scapula Posture (L) Protracted Arm Posture (L) Internally Rotated,(R) Internally Rotated Palpation Assessment Location subaxillary Palpation Findings Edema,Soft Tissue Tightness, Tenderness PT-OP-K Range of Motion Start: 06/04/20 17:38 Freq: Status: Active Protocol: Document 06/05/20 09:47 [facility] (Rec: 06/05/20 16:19 [facility] [id number]) Cervical Spine Range of Motion Cervical Spine Active ROM Limitations Soft Tissue Tightness Comments mod tightness all motions due to muscle tightness Shoulder Goniometric Range of Motion Shoulder Left Shoulder ROM WFL No Testing Position Sitting Flexion 160 Extension 10 Abduction 155 Horizontal Abduction 85 Horizontal Adduction 20 External Rotation at 0 degrees Abduction 75 Internal Rotation Behind Back (text) T12 right Shoulder ROM WFL Yes Testing Position Sitting Internal Rotation Behind Back (text) T4 Shoulder ROM Limitations Shoulder ROM Limitations Soft Tissue Tightness,Muscle Weakness,Pain Elbow/Forearm Range of Motion Elbow/Forearm edwina Elbow/Forearm ROM WFL Yes ROM Testing Position Sitting PT-OP-N Lymphedema Start: 06/04/20 17:38 Freq: Status: Active Protocol: Document 07/05/20 17:30 [facility] (Rec: 07/05/20 17:39 [facility] [id number]) Lymphedema Measurements Upper Extremity Circumference Measurements Left Affected MCP 18.7 cm Dorsum of Hand 19.5 cm Wrist 16.6 cm 5 cm From Wrist Crease 17.9 cm 10 cm From Wrist Crease 21.3 cm 15 cm From Wrist Crease 24 cm 20 cm From Wrist Crease 25.8 cm 25 cm From Wrist Crease 28.8 cm 30 cm From Wrist Crease 31.3 cm 35 cm From Wrist Crease 33.6 cm 40 cm From Wrist Crease 35.3 cm Axilla 43.2 cm - edwina axilla 102.5cm nipple line 109.9 PT-OP-Q Treatments Start: 06/04/20 17:38 Freq: Status: Active Protocol: Document 07/05/20 17:30 [facility] (Rec: 07/05/20 17:39 [facility] [id number]) Therapeutic Exercises Sidelying Exercises open book Reps/Minutes 5x Comments verbal and manual facilitation for segmental movement, cued deep breathing shoulder abduction Side bilateral Reps/Minutes 5 Comments with manual scapular facilitation, end-range stretch Sitting Exercises pulleys Sitting Exercise Name shoulder flexion and abduction Reps/Minutes 10x 5 Manual Therapy Treatment Soft Tissue Mobilization subaxillary Body Location left Mobilization Type Myofascial Release,Other Body Position Supine Comments pin and stretch Lymphedema Treatment Manual Lymphatic Drainage Location for left UE, subaxillary, and lateral trunk edema Duration 30 Comments MLD distal only to elbow due to lack of edema below elbow. PT-OP-T Assessment and Plan Start: 06/04/20 17:38 Freq: Status: Active Protocol: Document 07/05/20 17:30 [facility] (Rec: 07/05/20 17:39 [facility] [id number]) Physical Therapy Assessment Goals Five Impairment lymphedema life impact scale 44% Second Crusher Goal (LTG) Improve left shoulder function as evidenced by decrease in lymphedema life impact scare to no greater than 15% LTG Duration 09/03/20 Four Impairment subaxillary soft tissue tightness [facility] Goal (LTG) Normalize soft tissue texture and mobility in subaxillary region to decrease pain and facilitate lymphatic flow LTG Duration 09/03/20 Three Impairment decreased left shoulder ROM with inability to reach to bra -line behind back Short Term Goal (STG) Patient to be instructed in HEP for left shoulder ROM STG Duration 07/06/20 [facility] Goal (LTG) Patient left shoulder ROM to be WNL with patient able to reach to bra line behind back without pain or difficulty LTG Duration 09/03/20 Two Impairment pain left shoulder limiting function 5/10 on pain scale Short Term Goal (STG) decrease pain to no greater than 3/10 STG Duration 07/06/20 [facility] Goal (LTG) decrease left shoulder pain to no greater than 1-2/10 during all usual activities LTG Duration 09/03/20 One Impairment edema left proximal UE, axilla , lateral trunk Short Term Goal (STG) Decrease lymphedema to stable level (no increase or decrease greater than 1 cm over the course of 1 week) STG Duration 07/06/20 Jail Goal (LTG) Patient to be indepndent with all aspects of lymphedema self care and obtain appropriate compression LTG Duration 09/03/20 Assessment Summary Assessment Decreased circumferential measurement sin forearm, stable upper arm. Tender and tight subaxillary region in subscapualris and lat, demonstrates good understanding of pin and stretch. Physical Therapy Plan Frequency and Duration Frequency of Treatment 20 visits Duration of Treatment 12 weeks Plan of Care Start Date 06/05/20 Plan of Care End Date 09/03/20 Therapeutic Interventions Therapeutic Interventions Home Exercise Program, Lymphedema Management,Manual Therapy,Patient/Caregiver Education,Self-Care/Home Management,Soft Tissue Mobilization,Taping, Therapeutic Activities, Therapeutic Exercises Next Visit Focus/Plan Next Note Type Treatment Note Next Visit Plan Continue PT for shoulder ROM, lymphedema management. Emphasis on subaxillary stretching, pin and stretch. Circumferential measurements.
--- NOTE | 2020-07-10 13:50 | PT.OTN ---
Current Diagnoses Malignant neoplasm of colon, unspecified (07/10/20) Malignant melanoma of skin, unspecified (07/10/20) Lymphedema, not elsewhere classified (07/10/20) Pain in left shoulder (07/10/20) Soft tissue disorder, unspecified (07/10/20) Physical Therapy Treatment Note PT-OP-A Visit Information Start: 06/04/20 17:38 Freq: Status: Active Protocol: Document 07/10/20 09:54 SAK (Rec: 07/10/20 10:07 SAK [id number]) Out-Patient Physical Therapy Visit Information Visit Information Visit Type Treatment Note Visit Start Time 09:50 Visit Stop Time 10:32 Total Visit Minutes 42 Visit Number 10 Precautions Precautions History melanoma, thyroid cancer, Stage 3 colon cancer with lymph nodes removed for that as well. chemo-induced peripheral neuropathy (CIPN) PT-OP-B Current Condition Start: 06/04/20 17:38 Freq: Status: Active Protocol: Document 06/12/20 15:21 SAK (Rec: 06/12/20 16:17 SAK [id number]) Current Condition History of Current Condition Onset Date 5 years melanoma removed posterior left shoulder History of Current Condition states melanoma size of hockey puck out of back, followed by removal of 14 lymph nodes left axilla. States left UE has gradually gotten tighter and heavier over the years and also noticing tightness in lateral trunk. 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 Concerned about hurting her arm. Has 5 year old compression sleeve, has only previously used it with flying and long car rides . Had 2 breast biopsies on left side recently and has 1 more week before gets results. Prior PT for ROM, obtained compression sleeve at that time; no education on lymphedema though reports she has looked online some. Pain is worse at night in arm and across shoulder where the scarring from prior procedures is. Prior Treatments and Tests recent biopsy as above Future Testing and Treatments Planned follow-up with physician Treatment Goals Patient/Caregiver Goals minimize edema, learn therapeutic exercises and self -management to prevent from getting worse and know what to do to manage. 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 Less pain today. Reports she has been wearing compression sleeve and shirts consisitently PT-OP-F Manual Assessment Start: 06/04/20 17:38 Freq: Status: Active Protocol: Document 06/05/20 09:47 [facility] (Rec: 06/05/20 16:19 [facility] [id number]) Manual Assessments Soft Tissue Assessment Soft Tissue Mobility Assessment decreased mobility of scar thoracic spine (approx 10 horizontal scar T4 level), subaxillary tissue tightness and tenderness PT-OP-J Posture/Palpation/Skin Start: 06/04/20 17:38 Freq: Status: Active Protocol: Document 06/05/20 09:47 [facility] (Rec: 06/05/20 16:19 [facility] [id number]) Posture Evaluation Position Sitting Head/C-Spine Posture Forward Head T-Spine Posture Increased Kyphosis L-Spine Posture Decreased Lordosis Shoulder Posture (L) Rounded,(R) Rounded Scapula Posture (L) Protracted Arm Posture (L) Internally Rotated,(R) Internally Rotated Palpation Assessment Location subaxillary Palpation Findings Edema,Soft Tissue Tightness, Tenderness PT-OP-K Range of Motion Start: 06/04/20 17:38 Freq: Status: Active Protocol: Document 06/05/20 09:47 [facility] (Rec: 06/05/20 16:19 [facility] [id number]) Cervical Spine Range of Motion Cervical Spine Active ROM Limitations Soft Tissue Tightness Comments mod tightness all motions due to muscle tightness Shoulder Goniometric Range of Motion Shoulder Left Shoulder ROM WFL No Testing Position Sitting Flexion 160 Extension 10 Abduction 155 Horizontal Abduction 85 Horizontal Adduction 20 External Rotation at 0 degrees Abduction 75 Internal Rotation Behind Back (text) T12 right Shoulder ROM WFL Yes Testing Position Sitting Internal Rotation Behind Back (text) T4 Shoulder ROM Limitations Shoulder ROM Limitations Soft Tissue Tightness,Muscle Weakness,Pain Elbow/Forearm Range of Motion Elbow/Forearm edwina Elbow/Forearm ROM WFL Yes ROM Testing Position Sitting PT-OP-N Lymphedema Start: 06/04/20 17:38 Freq: Status: Active Protocol: Document 07/05/20 17:30 [facility] (Rec: 07/05/20 17:39 [facility] [id number]) Lymphedema Measurements Upper Extremity Circumference Measurements Left Affected MCP 18.7 cm Dorsum of Hand 19.5 cm Wrist 16.6 cm 5 cm From Wrist Crease 17.9 cm 10 cm From Wrist Crease 21.3 cm 15 cm From Wrist Crease 24 cm 20 cm From Wrist Crease 25.8 cm 25 cm From Wrist Crease 28.8 cm 30 cm From Wrist Crease 31.3 cm 35 cm From Wrist Crease 33.6 cm 40 cm From Wrist Crease 35.3 cm Axilla 43.2 cm - edwina axilla 102.5cm nipple line 109.9 PT-OP-Q Treatments Start: 06/04/20 17:38 Freq: Status: Active Protocol: Document 07/10/20 09:54 [facility] (Rec: 07/10/20 10:07 [facility] [id number]) Therapeutic Exercises Sidelying Exercises open book Reps/Minutes 5x Comments verbal and manual facilitation for segmental movement, cued deep breathing shoulder abduction Side bilateral Reps/Minutes 5 Comments with manual scapular facilitation, end-range stretch Sitting Exercises pulleys Sitting Exercise Name shoulder flexion and abduction Reps/Minutes 10x 5 Lymphedema Treatment Manual Lymphatic Drainage Location for left UE, subaxillary, and lateral trunk edema Duration 30 Comments MLD distal only to elbow due to lack of edema below elbow. PT-OP-T Assessment and Plan Start: 06/04/20 17:38 Freq: Status: Active Protocol: Document 07/10/20 09:54 [facility] (Rec: 07/10/20 10:07 [facility] [id number]) Physical Therapy Assessment Goals Five Impairment lymphedema life impact scale 44% [facility] Goal (LTG) Improve left shoulder function as evidenced by decrease in lymphedema life impact scare to no greater than 15% LTG Duration 09/03/20 Four Impairment subaxillary soft tissue tightness [facility] Goal (LTG) Normalize soft tissue texture and mobility in subaxillary region to decrease pain and facilitate lymphatic flow LTG Duration 09/03/20 Three Impairment decreased left shoulder ROM with inability to reach to bra -line behind back Short Term Goal (STG) Patient to be instructed in HEP for left shoulder ROM STG Duration 07/06/20 [employer] Goal (LTG) Patient left shoulder ROM to be WNL with patient able to reach to bra line behind back without pain or difficulty LTG Duration 09/03/20 Two Impairment pain left shoulder limiting function 5/10 on pain scale Short Term Goal (STG) decrease pain to no greater than 3/10 STG Duration 07/06/20 [employer] Goal (LTG) decrease left shoulder pain to no greater than 1-2/10 during all usual activities LTG Duration 09/03/20 One Impairment edema left proximal UE, axilla , lateral trunk Short Term Goal (STG) Decrease lymphedema to stable level (no increase or decrease greater than 1 cm over the course of 1 week) STG Duration 07/06/20 [facility] Goal (LTG) Patient to be indepndent with all aspects of lymphedema self care and obtain appropriate compression LTG Duration 09/03/20 Assessment Summary Assessment Further decrease in circumferential measurements, good progress. Less tenderness with subaxillary stretch and pin and stretch techniques, but still palpable and tender. Physical Therapy Plan Frequency and Duration Frequency of Treatment 20 visits Duration of Treatment 12 weeks Plan of Care Start Date 06/05/20 Plan of Care End Date 09/03/20 Therapeutic Interventions Therapeutic Interventions Home Exercise Program, Lymphedema Management,Manual Therapy,Patient/Caregiver Education,Self-Care/Home Management,Soft Tissue Mobilization,Taping, Therapeutic Activities, Therapeutic Exercises Next Visit Focus/Plan Next Note Type Treatment Note Next Visit Plan Final regularly scheduled appointment. Anticipate 1 further appointment, then follow-up appointment in 3 weeks to assure continued compliance and progress. Continue PT for shoulder ROM, lymphedema management. Emphasis on subaxillary stretching, pin and stretch. Circumferential measurements.
--- NOTE | 2020-07-12 08:12 | PT-OP ANOTE ---
cancelled PT appointment due to ill.
--- NOTE | 2020-07-19 16:47 | PT.OTN ---
Current Diagnoses Malignant neoplasm of colon, unspecified (07/17/20) Malignant melanoma of skin, unspecified (07/17/20) Lymphedema, not elsewhere classified (07/17/20) Pain in left shoulder (07/17/20) Soft tissue disorder, unspecified (07/17/20) Physical Therapy Treatment Note PT-OP-A Visit Information Start: 06/04/20 17:38 Freq: Status: Active Protocol: Document 07/12/20 08:12 SAK (Rec: 07/12/20 08:12 SAK [id number]) Out-Patient Physical Therapy Visit Information Visit Information Visit Type Cancellation Visit Note ill PT-OP-B Current Condition Start: 06/04/20 17:38 Freq: Status: Active Protocol: Document 06/12/20 15:21 SAK (Rec: 06/12/20 16:17 SAK [id number]) Current Condition History of Current Condition Onset Date 5 years melanoma removed posterior left shoulder History of Current Condition states melanoma size of hockey puck out of back, followed by removal of 14 lymph nodes left axilla. States left UE has gradually gotten tighter and heavier over the years and also noticing tightness in lateral trunk. 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 Concerned about hurting her arm. Has 5 year old compression sleeve, has only previously used it with flying and long car rides . Had 2 breast biopsies on left side recently and has 1 more week before gets results. Prior PT for ROM, obtained compression sleeve at that time; no education on lymphedema though reports she has looked online some. Pain is worse at night in arm and across shoulder where the scarring from prior procedures is. Prior Treatments and Tests recent biopsy as above Future Testing and Treatments Planned follow-up with physician Treatment Goals Patient/Caregiver Goals minimize edema, learn therapeutic exercises and self -management to prevent from getting worse and know what to do to manage. PT-OP-C Subjective Start: 06/04/20 17:38 Freq: Status: Active Protocol: Document 07/17/20 14:31 SAK (Rec: 07/17/20 15:16 SAK [id number]) OP-PT Subjective Patient Comments Patient Comments States woke up clammy in middle of night, had a migraine, had to cancel, resolved by that night. Reports her arm is more sore than it's ever been, has been overdoing it with physical activity at home and [place] the farm; was wearing compression. PT-OP-F Manual Assessment Start: 06/04/20 17:38 Freq: Status: Active Protocol: Document 06/05/20 09:47 [facility] (Rec: 06/05/20 16:19 [facility] [id number]) Manual Assessments Soft Tissue Assessment Soft Tissue Mobility Assessment decreased mobility of scar thoracic spine (approx 10 horizontal scar T4 level), subaxillary tissue tightness and tenderness PT-OP-J Posture/Palpation/Skin Start: 06/04/20 17:38 Freq: Status: Active Protocol: Document 06/05/20 09:47 [facility] (Rec: 06/05/20 16:19 [facility] [id number]) Posture Evaluation Position Sitting Head/C-Spine Posture Forward Head T-Spine Posture Increased Kyphosis L-Spine Posture Decreased Lordosis Shoulder Posture (L) Rounded,(R) Rounded Scapula Posture (L) Protracted Arm Posture (L) Internally Rotated,(R) Internally Rotated Palpation Assessment Location subaxillary Palpation Findings Edema,Soft Tissue Tightness, Tenderness PT-OP-K Range of Motion Start: 06/04/20 17:38 Freq: Status: Active Protocol: Document 06/05/20 09:47 [facility] (Rec: 06/05/20 16:19 [facility] [id number]) Cervical Spine Range of Motion Cervical Spine Active ROM Limitations Soft Tissue Tightness Comments mod tightness all motions due to muscle tightness Shoulder Goniometric Range of Motion Shoulder Left Shoulder ROM WFL No Testing Position Sitting Flexion 160 Extension 10 Abduction 155 Horizontal Abduction 85 Horizontal Adduction 20 External Rotation at 0 degrees Abduction 75 Internal Rotation Behind Back (text) T12 right Shoulder ROM WFL Yes Testing Position Sitting Internal Rotation Behind Back (text) T4 Shoulder ROM Limitations Shoulder ROM Limitations Soft Tissue Tightness,Muscle Weakness,Pain Elbow/Forearm Range of Motion Elbow/Forearm edwina Elbow/Forearm ROM WFL Yes ROM Testing Position Sitting PT-OP-N Lymphedema Start: 06/04/20 17:38 Freq: Status: Active Protocol: Document 07/10/20 09:54 [facility] (Rec: 07/10/20 14:10 [facility] [id number]) Lymphedema Measurements Upper Extremity Circumference Measurements Left Affected MCP 18.6 cm Dorsum of Hand 19.6 cm Wrist 16.6 cm 5 cm From Wrist Crease 17.6 cm 10 cm From Wrist Crease 20.1 cm 15 cm From Wrist Crease 23.3 cm 20 cm From Wrist Crease 25.3 cm 25 cm From Wrist Crease 27.9 cm 30 cm From Wrist Crease 30.5 cm 35 cm From Wrist Crease 31.8 cm 40 cm From Wrist Crease 34.7 cm Axilla 42.2 cm - edwina axilla 102.8 nipple line 109.9 PT-OP-Q Treatments Start: 06/04/20 17:38 Freq: Status: Active Protocol: Document 07/17/20 14:31 SAK (Rec: 07/17/20 15:16 SAK [id number]) Therapeutic Exercises Sidelying Exercises open book Reps/Minutes 5x Comments verbal and manual facilitation for segmental movement, cued deep breathing shoulder abduction Side bilateral Reps/Minutes 5 Comments with manual scapular facilitation, end-range stretch Sitting Exercises pulleys Sitting Exercise Name shoulder flexion and abduction Reps/Minutes 10x 5 Manual Therapy Treatment Soft Tissue Mobilization subaxillary Body Location left Mobilization Type Myofascial Release,Other Body Position Supine Comments pin and stretch Manual Techniques scar mobilization Type instrument assisted suction ( medium suction cup) Body Location lumpectomy incision Body Position Supine Reps/Duration 5 min Self-Care/Home Management Treatment Education Patient Education Home Exercise Program,Pain Management Other Education wear compression will all physical activity, with exercises reviewed pin and stretch Lymphedema Treatment Manual Lymphatic Drainage Location for left UE, subaxillary, and lateral trunk edema Duration 20 Comments MLD distal only to elbow due to lack of edema below elbow. Lymphedema Wrapping Materials shown compression wrap alternative Patient Education Compression Garments further options including lymphedema wrap, layering, compress shirts, bras Other Given further information regarding [facility] YouTube channel for further reference and education on lymphedema management, soft tissue mobilization, compression garments. Other Other recommend follow-up in 3 weeks PT-OP-T Assessment and Plan Start: 06/04/20 17:38 Freq: Status: Active Protocol: Document 07/17/20 14:31 SAK (Rec: 07/17/20 15:16 SAK [id number]) Physical Therapy Assessment Goals Five Impairment lymphedema life impact scale 44% [facility] Goal (LTG) Improve left shoulder function as evidenced by decrease in lymphedema life impact scare to no greater than 15% LTG Duration 09/03/20 Four Impairment subaxillary soft tissue tightness Emergency Department Physician Goal (LTG) Normalize soft tissue texture and mobility in subaxillary region to decrease pain and facilitate lymphatic flow LTG Duration 09/03/20 Three Impairment decreased left shoulder ROM with inability to reach to bra -line behind back Short Term Goal (STG) Patient to be instructed in HEP for left shoulder ROM STG Duration 07/06/20 Emergency Department Physician Goal (LTG) Patient left shoulder ROM to be WNL with patient able to reach to bra line behind back without pain or difficulty LTG Duration 09/03/20 Two Impairment pain left shoulder limiting function 5/10 on pain scale Short Term Goal (STG) decrease pain to no greater than 3/10 STG Duration 07/06/20 [facility] Goal (LTG) decrease left shoulder pain to no greater than 1-2/10 during all usual activities LTG Duration 09/03/20 One Impairment edema left proximal UE, axilla , lateral trunk Short Term Goal (STG) Decrease lymphedema to stable level (no increase or decrease greater than 1 cm over the course of 1 week) STG Duration 07/06/20 Emergency Department Physician Goal (LTG) Patient to be indepndent with all aspects of lymphedema self care and obtain appropriate compression LTG Duration 09/03/20 Assessment Summary Assessment Patient appears to have a muscle strain in scapular region as well as noting increase in edema by circumferential measurement today. Further patient education in options for compression, information regarding compression sleeves and websites, reviewed HEP including pin and stretch scar mobilization. Patient demonstrated good understanding, has PT information to contact with any questions. Patient urged to increase activity level more slowly as she [place]. Agreeable to follow-up appointment in 3 weeks for reassement, determine need for further PT. Physical Therapy Plan Frequency and Duration Frequency of Treatment 20 visits Duration of Treatment 12 weeks Plan of Care Start Date 06/05/20 Plan of Care End Date 09/03/20 Therapeutic Interventions Therapeutic Interventions Home Exercise Program, Lymphedema Management,Manual Therapy,Patient/Caregiver Education,Self-Care/Home Management,Soft Tissue Mobilization,Taping, Therapeutic Activities, Therapeutic Exercises Next Visit Focus/Plan Next Note Type Treatment Note Next Visit Plan Follow-up in 3 weeks.
--- NOTE | 2020-08-06 15:56 | PT.OTN ---
Current Diagnoses Malignant neoplasm of colon, unspecified (08/06/20) Malignant melanoma of skin, unspecified (08/06/20) Lymphedema, not elsewhere classified (08/06/20) Pain in left shoulder (08/06/20) Soft tissue disorder, unspecified (08/06/20) Physical Therapy Treatment Note PT-OP-A Visit Information Start: 06/04/20 17:38 Freq: Status: Active Protocol: Document 08/06/20 15:17 SAK (Rec: 08/06/20 15:41 SAK [id number]) Out-Patient Physical Therapy Visit Information Visit Information Visit Type Treatment Note Visit Start Time 15:16 Visit Stop Time 15:41 Total Visit Minutes 25 Visit Number 11 PT-OP-B Current Condition Start: 06/04/20 17:38 Freq: Status: Active Protocol: Document 06/12/20 15:21 SAK (Rec: 06/12/20 16:17 SAK [id number]) Current Condition History of Current Condition Onset Date 5 years melanoma removed posterior left shoulder History of Current Condition states melanoma size of hockey puck out of back, followed by removal of 14 lymph nodes left axilla. States left UE has gradually gotten tighter and heavier over the years and also noticing tightness in lateral trunk. 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 Concerned about hurting her arm. Has 5 year old compression sleeve, has only previously used it with flying and long car rides . Had 2 breast biopsies on left side recently and has 1 more week before gets results. Prior PT for ROM, obtained compression sleeve at that time; no education on lymphedema though reports she has looked online some. Pain is worse at night in arm and across shoulder where the scarring from prior procedures is. Prior Treatments and Tests recent biopsy as above Future Testing and Treatments Planned follow-up with physician Treatment Goals Patient/Caregiver Goals minimize edema, learn therapeutic exercises and self -management to prevent from getting worse and know what to do to manage. 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 States she realizes she was doing too much, feels swelling down now. When doing more activity wears heavier compression, when doing less wears less compressive sleeve. Distracted due to pending move [place] the country, in middle of selling current home and property. Compliant to HEP, feels ready for discharge from PT. PT-OP-F Manual Assessment Start: 06/04/20 17:38 Freq: Status: Active Protocol: Document 06/05/20 09:47 SAK (Rec: 06/05/20 16:19 SAK [id number]) Manual Assessments Soft Tissue Assessment Soft Tissue Mobility Assessment decreased mobility of scar thoracic spine (approx 10 horizontal scar T4 level), subaxillary tissue tightness and tenderness PT-OP-J Posture/Palpation/Skin Start: 06/04/20 17:38 Freq: Status: Active Protocol: Document 06/05/20 09:47 SAK (Rec: 06/05/20 16:19 SAK [id number]) Posture Evaluation Position Sitting Head/C-Spine Posture Forward Head T-Spine Posture Increased Kyphosis L-Spine Posture Decreased Lordosis Shoulder Posture (L) Rounded,(R) Rounded Scapula Posture (L) Protracted Arm Posture (L) Internally Rotated,(R) Internally Rotated Palpation Assessment Location subaxillary Palpation Findings Edema,Soft Tissue Tightness, Tenderness PT-OP-K Range of Motion Start: 06/04/20 17:38 Freq: Status: Active Protocol: Document 06/05/20 09:47 SAK (Rec: 06/05/20 16:19 SAK [id number]) Cervical Spine Range of Motion Cervical Spine Active ROM Limitations Soft Tissue Tightness Comments mod tightness all motions due to muscle tightness Shoulder Goniometric Range of Motion Shoulder Left Shoulder ROM WFL No Testing Position Sitting Flexion 160 Extension 10 Abduction 155 Horizontal Abduction 85 Horizontal Adduction 20 External Rotation at 0 degrees Abduction 75 Internal Rotation Behind Back (text) T12 right Shoulder ROM WFL Yes Testing Position Sitting Internal Rotation Behind Back (text) T4 Shoulder ROM Limitations Shoulder ROM Limitations Soft Tissue Tightness,Muscle Weakness,Pain Elbow/Forearm Range of Motion Elbow/Forearm edwina Elbow/Forearm ROM WFL Yes ROM Testing Position Sitting PT-OP-N Lymphedema Start: 06/04/20 17:38 Freq: Status: Active Protocol: Document 08/06/20 15:17 SAK (Rec: 08/06/20 15:56 [facility] [id number]) Lymphedema Measurements Upper Extremity Circumference Measurements Left Affected MCP 17.9 cm Dorsum of Hand 19 cm Wrist 16 cm 5 cm From Wrist Crease 17.5 cm 10 cm From Wrist Crease 20.7 cm 15 cm From Wrist Crease 23.7 cm 20 cm From Wrist Crease 25.6 cm 25 cm From Wrist Crease 28.7 cm 30 cm From Wrist Crease 31 cm 35 cm From Wrist Crease 32.9 cm 40 cm From Wrist Crease 34.5 cm Axilla 41.8 cm - edwina axilla 102.7 nipple line 109.7 PT-OP-Q Treatments Start: 06/04/20 17:38 Freq: Status: Active Protocol: Document 08/06/20 15:17 [facility] (Rec: 08/06/20 15:41 [facility] [id number]) Self-Care/Home Management Treatment Education Patient Education Home Exercise Program,Posture Other Education Low and slow with progression of activity and exercise Lymphedema Treatment Other Other circumferential measurements taken; all decreased PT-OP-T Assessment and Plan Start: 06/04/20 17:38 Freq: Status: Active Protocol: Document 08/06/20 15:17 [facility] (Rec: 08/06/20 15:41 [facility] [id number]) Physical Therapy Assessment Goals Five Impairment lymphedema life impact scale 44% Day Light Relief Operator Goal (LTG) Improve left shoulder function as evidenced by decrease in lymphedema life impact scare to no greater than 15% LTG Duration goal met Four Impairment subaxillary soft tissue tightness Custodial Goal (LTG) Normalize soft tissue texture and mobility in subaxillary region to decrease pain and facilitate lymphatic flow LTG Duration goal met Three Impairment decreased left shoulder ROM with inability to reach to bra -line behind back Short Term Goal (STG) Patient to be instructed in HEP for left shoulder ROM STG Duration 07/06/20 Custodial Goal (LTG) Patient left shoulder ROM to be WNL with patient able to reach to bra line behind back without pain or difficulty LTG Duration goal met Two Impairment pain left shoulder limiting function 5/10 on pain scale Short Term Goal (STG) decrease pain to no greater than 3/10 STG Duration 07/06/20 Day Light Relief Operator Goal (LTG) decrease left shoulder pain to no greater than 1-2/10 during all usual activities LTG Duration goal met One Impairment edema left proximal UE, axilla , lateral trunk Short Term Goal (STG) Decrease lymphedema to stable level (no increase or decrease greater than 1 cm over the course of 1 week) STG Duration 07/06/20 Day Light Relief Operator Goal (LTG) Patient to be indepndent with all aspects of lymphedema self care and obtain appropriate compression LTG Duration goal met Physical Therapy Plan Discharge Physical Therapy Discharge Reasons Goals Met
== END 2020-08-07 07:45 | disposition home or self-care (01) ==
LOC: PHYS 15:15
PROVIDERS: PCP Nurse Practitioner Family; Referring Provider Internal Medicine; Visit Provider Internal Medicine
DX: I89.0 Lymphedema, not elsewhere classified (principal); M25.512 Pain in left shoulder; M79.9 Soft tissue disorder, unspecified; C43.9 Malignant melanoma of skin, unspecified; C18.9 Malignant neoplasm of colon, unspecified
CPT/HCPCS: 97110; 97140; 97162; 97535